=== PATIENT | female | born 1965 | race Caucasian/White ===

== ENCOUNTER 2016-10-29 11:05 | Day surgery (SDC) | payer OTHER ==
[~2016-10-29] VITALS: Ht 167.6 cm; Wt 111.1 kg
[~2016-10-29 11:05] MED LIST: ADVAIR HFA120 INHALA IH; AMOX TR-K CLV1 EAC3 PO; APRESOLINE25 MG PO; ASPIR 8181 MG PO; ASPIRIN EC325 MG PO; ASPIRIN81 M2 PO; AVENTYL,PAMELOR25 MG PO; Aspirin E.C. PO; BACTRIM,SEPT1 TABLET PO; BENADRYL25 MG PO; BUSPAR10 MG PO; BUSPAR5 MG PO; Buspar PO; CALCIUM ACETAT667 M2 PO; CALCIUM ACETAT667 MG PO; CARVEDILOL12.5 MG PO; CARVEDILOL3.125 MG PO; CARVEDILOL6.25 MG PO; CEPHALEXIN500 MG PO; CLARITIN10 M3 PO; CLEOCIN300 MG PO; CLINDAMYCIN HC300 MG PO; CLOPIDOGREL75 MG PO; COREG3.125 M1 PO; COREG6.25 M1 PO; CRESTOR20 MG PO; Cipro PO; Cleocin PO; Colace PO; DOXYCYCLINE HY100 MG PO; ENALAPRIL MALEA20 M1 PO; ENALAPRIL MALEA20 MG PO; ENDOCET 5-3251 EACH PO; ERGOCALCIF50000 UNIT PO; FENOFIBRATE145 M1 PO; FENOFIBRATE160 MG PO; FENOGLIDE40 MG PO; FLONASE ALLERG9.9 ML BOTH NARES; FLORASTOR250 MG PO; FUROSEMIDE40 MG PO; GABAPENTIN300 MG PO; GABAPENTIN400 MG PO; GABAPENTIN800 MG PO; GLIPIZIDE5 MG PO; GLUCOTROL5 MG PO; GLYBURIDE5 MG PO; HUMALOG100 UNIT/1 SC; HUMALOG100 UNIT/2 SC; HYDRALAZINE HCL25 MG PO; HYDROCHLOROTH12.5 M2 PO; HYDROCODON-ACE1 EAC7 PO; Habitrol,Nicoderm CQ TD; JANUVIA25 MG PO; Januvia PO; K-DUR10 MEQ PO; KEFLEX500 MG PO; LANTUS 10100 UNITS/ SC; LANTUS 10100 UNITS/ SQ; LASIX40 MG PO; LEVEMIR FL100 UNIT/1 SC; LEVEMIR FL100 UNITS/ SC; LITE COAT ASPI325 M1 PO; Mitrazol 2% Cream TP; NEPHRO-VITE,1 TABLET PO; NEURONTIN400 MG PO; NEURONTIN800 MG PO; NICOTINE PATCH1 EAC1 TD; NICOTINE PATCH1 EAC2 TD; NITROSTAT0.4 MG SL; NORTRIPTYLINE H10 MG PO; NORTRIPTYLINE H25 MG PO; NOVOLOG PE100 UNITS/ SC; NOVOLOG100 UNIT/3 SQ; Neurontin PO; OXYCODONE10 MG PO; Oscal 500 w/Vitamin PO; PAMELOR25 MG PO; PANTOPRAZOLE SO40 MG PO; PERCOCET 10/1 TABLET PO; PERCOCET 5/31 TABLET PO; PHENERGAN W/COD10 ML PO; PLAVIX75 MG PO; PRAVACHOL40 MG PO; PRAVASTATIN SOD40 MG PO; PROVENTIL HFA6.7 GM IH; Proventil,Ventolin H IH; SERTRALINE HCL100 MG PO; SPIRIVA RESPIMAT4 GM IH; SPIRIVA1 INHALATI IH; Senokot S,Pericolace PO; TYLENOL REGULA325 MG PO; Theragran PO; Tricor PO; ULTRAM50 MG PO; VANCOMYCIN HCL1 GM IV; VANCOMYCIN HCL500 MG IV; VICTOZA 2-0.6 MG/0.1 SQ; VITAMIN D250000 UNIT PO; ZOFRAN ODT4 MG PO; ZOFRAN4 MG PO; ZOLOFT100 MG PO; Zoloft PO; oxyCODONE PO
[2016-10-29] MEDS ORDERED: HYDRALAZINE HCL25 MG PO (11:40)
[2016-10-29 12:05] LABS: POINT-OF-CARE METER ID UU13113696
[2016-10-29 13:09] LABS: METH RESISTANT S AUREUS PCR NEGATIVE (NEGATIVE); PROBE CHECK PASS; SPECIMEN PROCESSING CONTROL PASS
== END 2016-10-29 15:35 | disposition home or self-care (01) ==
LOC: CATH 11:05 → SDC 11:06 → CATH 14:01
PROVIDERS: Surgery
PROC: 02HV33Z Insertion of Infusion Device into Superior Vena Cava, Percutaneous Approach (ICD-10-PCS; principal; 2016-10-29)
DX: T82.9XXA Unspecified complication of cardiac and vascular prosthetic device, implant and graft, initial encounter (principal); Y83.8 Other surgical procedures as the cause of abnormal reaction of the patient, or of later complication, without mention of misadventure at the time of the procedure; Z99.2 Dependence on renal dialysis; I12.0 Hypertensive chronic kidney disease with stage 5 chronic kidney disease or end stage renal disease; E11.22 Type 2 diabetes mellitus with diabetic chronic kidney disease; N18.6 End stage renal disease; R01.1 Cardiac murmur, unspecified; J44.9 Chronic obstructive pulmonary disease, unspecified; F17.200 Nicotine dependence, unspecified, uncomplicated
CPT/HCPCS: 82948; 87641; C1750; J0690; J1644; J2250; J2405; J3010; S0020

== ENCOUNTER 2016-12-03 11:56 | Day surgery (SDC) | payer OTHER ==
[~2016-12-03] VITALS: Ht 167.6 cm; Wt 113.3 kg
[2016-12-03 12:39] VITALS: BP 155/82
[2016-12-03 13:04] LABS: HEMATOCRIT 39.1 % (36.0-46.0); MCH 30.8 PG (29.0-34.0); MCHC 32.2 G/DL (30.0-36.0); MCV 95.6 FL (83-99); RBC DIS.WIDTH-SD 56.6 % (39-53); RED BLOOD COUNT 4.09 M/uL (3.80-5.20); WHITE BLOOD COUNT 4.2 K/uL (4.1-10.2)
[2016-12-03 13:27] LABS: MEAN PLAT.VOLUME 11.2 uM^3 (9.5-12.4); PLATELET COUNT 104 K/uL (156-360)
[2016-12-03 13:30] LABS: METH RESISTANT S AUREUS PCR POSITIVE (NEGATIVE)
[2016-12-03 13:32] LABS: PROBE CHECK PASS
[2016-12-03 13:42] LABS: ANION GAP 12 MEQ/L (2-14); CHLORIDE 99 MEQ/L (99-109); GFR ESTIMATE (CALCULATED) 20 mL/min/; GLUCOSE 125 mg/dL (70-99); POTASSIUM 4.5 MEQ/L (3.7-5.4); SAMPLE HEMOLYSIS CHECK 0; SAMPLE ICTERIC CHECK 0; SAMPLE LIPEMIA CHECK 0; SODIUM 134 MEQ/L (136-147); UREA NITROGEN (BUN) 13 mg/dL (9-23)
[2016-12-03 16:47] LABS: POINT-OF-CARE USER ID 515036437
[2016-12-03 17:30] VITALS: BP 135/62
[2016-12-03 18:12] VITALS: BP 124/57
== END 2016-12-03 18:12 | disposition home or self-care (01) ==
LOC: SDC 11:56
PROVIDERS: Surgery
PROC: 03170KD Bypass Right Brachial Artery to Upper Arm Vein with Nonautologous Tissue Substitute, Open Approach (ICD-10-PCS; principal; 2016-12-03)
DX: N18.6 End stage renal disease (principal); I12.0 Hypertensive chronic kidney disease with stage 5 chronic kidney disease or end stage renal disease; E11.22 Type 2 diabetes mellitus with diabetic chronic kidney disease; Z86.73 Personal history of transient ischemic attack (TIA), and cerebral infarction without residual deficits; J45.909 Unspecified asthma, uncomplicated; J44.9 Chronic obstructive pulmonary disease, unspecified; I73.9 Peripheral vascular disease, unspecified; M19.90 Unspecified osteoarthritis, unspecified site
CPT/HCPCS: 80048; 82948; 85027; 87641; C1768; J0690; J1644; J2250; J2720; J3010

== ENCOUNTER 2016-12-30 07:15 | Day surgery (SDC) | payer OTHER ==
[~2016-12-30] VITALS: Ht 167.6 cm; Wt 113.0 kg
[2016-12-30] MEDS ORDERED: ASPIRIN325 MG PO (08:03)
[2016-12-30 08:39] LABS: POINT-OF-CARE METER ID UU13113696
[2016-12-30 09:49] LABS: METH RESISTANT S AUREUS PCR NEGATIVE (NEGATIVE)
[2016-12-30 09:58] LABS: PROBE CHECK PASS; SPECIMEN PROCESSING CONTROL PASS
[2016-12-31] MEDS ORDERED: PERCOCET 10/1 TABLET PO (08:57)
== END 2016-12-30 11:07 | disposition home or self-care (01) ==
LOC: CATH 07:15
PROVIDERS: Surgery
PROC: 05HY33Z Insertion of Infusion Device into Upper Vein, Percutaneous Approach (ICD-10-PCS; principal; 2016-12-30)
PROC: B51W1ZZ Fluoroscopy of Dialysis Shunt/Fistula using Low Osmolar Contrast (ICD-10-PCS; principal; 2016-12-30)
DX: T82.858A Stenosis of other vascular prosthetic devices, implants and grafts, initial encounter (principal); Y83.2 Surgical operation with anastomosis, bypass or graft as the cause of abnormal reaction of the patient, or of later complication, without mention of misadventure at the time of the procedure; I12.0 Hypertensive chronic kidney disease with stage 5 chronic kidney disease or end stage renal disease; E11.22 Type 2 diabetes mellitus with diabetic chronic kidney disease; N18.6 End stage renal disease; Z99.2 Dependence on renal dialysis; F17.200 Nicotine dependence, unspecified, uncomplicated; I73.9 Peripheral vascular disease, unspecified; Z86.73 Personal history of transient ischemic attack (TIA), and cerebral infarction without residual deficits; J44.9 Chronic obstructive pulmonary disease, unspecified; J45.909 Unspecified asthma, uncomplicated; M19.90 Unspecified osteoarthritis, unspecified site; Z79.4 Long term (current) use of insulin; Z79.891 Long term (current) use of opiate analgesic
CPT/HCPCS: 82948; 87641; C1725; C1769; C1894; J1644; J2250; J3010

== ENCOUNTER 2017-01-02 08:23 | Day surgery (SDC) | payer OTHER ==
[~2017-01-02] VITALS: Ht 167.6 cm; Wt 113.4 kg
[2017-01-02] VITALS (7 sets, daily range): BP systolic 93–133; BP diastolic 52–87
[~2017-01-02 08:23] MED LIST changes: +ASPIRIN325 MG PO
[2017-01-02 09:31] LABS: HEMATOCRIT 34.1 % (36.0-46.0); MCH 30.3 PG (29.0-34.0); MCHC 31.4 G/DL (30.0-36.0); MCV 96.6 FL (83-99); MEAN PLAT.VOLUME 10.2 uM^3 (9.5-12.4); PLATELET COUNT 113 K/uL (156-360); RBC DIS.WIDTH-CV 17.1 % (11.8-14.6); RBC DIS.WIDTH-SD 59.8 % (39-53); RED BLOOD COUNT 3.53 M/uL (3.80-5.20); WHITE BLOOD COUNT 4.2 K/uL (4.1-10.2)
[2017-01-02 09:55] LABS: ANION GAP 12 MEQ/L (2-14); CHLORIDE 89 MEQ/L (99-109); POTASSIUM 3.5 MEQ/L (3.7-5.4); SAMPLE HEMOLYSIS CHECK 0; SAMPLE ICTERIC CHECK 0; SAMPLE LIPEMIA CHECK 0; SODIUM 134 MEQ/L (136-147)
[2017-01-02 10:01] LABS: GFR ESTIMATE (CALCULATED) 9 mL/min/; GLUCOSE 265 mg/dL (70-99); UREA NITROGEN (BUN) 29 mg/dL (9-23)
[2017-01-02 10:34] LABS: METH RESISTANT S AUREUS PCR NEGATIVE (NEGATIVE)
[2017-01-02 10:46] LABS: PROBE CHECK PASS; SPECIMEN PROCESSING CONTROL PASS
[2017-01-02 11:37] LABS: POINT-OF-CARE METER ID UU14174212
[2017-01-02 14:10] LABS: POINT-OF-CARE METER ID UU13113675
[2017-01-02 15:18] LABS: TROP-I INTERPRETATION NEGATIVE; TROPONIN-I 0.06 ng/mL (0.0-0.30)
[2017-01-02 15:23] LABS: HEMATOCRIT 25.8 % (36.0-46.0); MCH 30.5 PG (29.0-34.0); MCHC 31.8 G/DL (30.0-36.0); MCV 95.9 FL (83-99); MEAN PLAT.VOLUME 10.9 uM^3 (9.5-12.4); PLATELET COUNT 87 K/uL (156-360); RBC DIS.WIDTH-CV 17.3 % (11.8-14.6); RBC DIS.WIDTH-SD 59.9 % (39-53); WHITE BLOOD COUNT 3.6 K/uL (4.1-10.2)
[2017-01-02 16:00] LABS: RED BLOOD COUNT 2.69 M/uL (3.80-5.20)
== END 2017-01-02 21:27 | disposition home or self-care (01) ==
LOC: SDC 08:23
PROVIDERS: Anesthesiology; Surgery
PROC: 30233N1 Transfusion of Nonautologous Red Blood Cells into Peripheral Vein, Percutaneous Approach (ICD-10-PCS; principal; 2017-01-02)
PROC: 05WY07Z Revision of Autologous Tissue Substitute in Upper Vein, Open Approach (ICD-10-PCS; principal; 2017-01-02)
PROC: 05HM33Z Insertion of Infusion Device into Right Internal Jugular Vein, Percutaneous Approach (ICD-10-PCS; principal; 2017-01-02)
DX: T82.858A Stenosis of other vascular prosthetic devices, implants and grafts, initial encounter (principal); I12.0 Hypertensive chronic kidney disease with stage 5 chronic kidney disease or end stage renal disease; E11.22 Type 2 diabetes mellitus with diabetic chronic kidney disease; E11.42 Type 2 diabetes mellitus with diabetic polyneuropathy; N18.6 End stage renal disease; Z99.2 Dependence on renal dialysis; I25.10 Atherosclerotic heart disease of native coronary artery without angina pectoris; I25.2 Old myocardial infarction; Z98.61 Coronary angioplasty status; D64.9 Anemia, unspecified; E78.5 Hyperlipidemia, unspecified; E66.9 Obesity, unspecified; Z68.39 Body mass index [BMI] 39.0-39.9, adult; J44.9 Chronic obstructive pulmonary disease, unspecified; E78.00 Pure hypercholesterolemia, unspecified; F17.200 Nicotine dependence, unspecified, uncomplicated; Z82.49 Family history of ischemic heart disease and other diseases of the circulatory system; Z82.3 Family history of stroke; Z83.3 Family history of diabetes mellitus; Z79.82 Long term (current) use of aspirin; Z79.02 Long term (current) use of antithrombotics/antiplatelets
CPT/HCPCS: 71020; 80048; 82948; 84484; 85014; 85018; 85027; 86850; 86900; 86901; 86920; 87070; 87075; 87205; 87641; 93005; C1750; C1769; C2628; J0131; J0690; J1170; J1644; J2250; J2720; J3010; P9016; P9045

== ENCOUNTER 2017-02-02 17:53 | Emergency (ER) | payer OTHER ==
[~2017-02-02] VITALS: Ht 167.6 cm; Wt 111.4 kg
[2017-02-02] MEDS ORDERED: KEFLEX500 MG PO (19:31)
[2017-02-02 19:58] VITALS: BP 145/79
== END 2017-02-02 19:59 | disposition home or self-care (01) ==
LOC: EME 17:53
PROC: 0HQNXZZ Repair Left Foot Skin, External Approach (ICD-10-PCS; principal; 2017-02-02)
DX: S91.312A Laceration without foreign body, left foot, initial encounter (principal); W22.03XA Walked into furniture, initial encounter; J45.909 Unspecified asthma, uncomplicated; E11.9 Type 2 diabetes mellitus without complications; Z79.4 Long term (current) use of insulin; Z79.84 Long term (current) use of oral hypoglycemic drugs; E78.5 Hyperlipidemia, unspecified; I25.2 Old myocardial infarction; Z86.73 Personal history of transient ischemic attack (TIA), and cerebral infarction without residual deficits; Z87.442 Personal history of urinary calculi; Z95.5 Presence of coronary angioplasty implant and graft; Z79.01 Long term (current) use of anticoagulants; F17.200 Nicotine dependence, unspecified, uncomplicated; I50.9 Heart failure, unspecified
CPT/HCPCS: 99281; 99284

== ENCOUNTER 2017-02-27 11:26 | Inpatient (IN) | payer OTHER ==
[~2017-02-27] VITALS: Ht 165.1 cm; Wt 113.9 kg
[2017-02-27 12:26] LABS: HEMATOCRIT 32.9 % (36.0-46.0); MCH 31.8 PG (29.0-34.0); MCHC 31.3 G/DL (30.0-36.0); MCV 101.5 FL (83-99); MEAN PLAT.VOLUME 10.6 uM^3 (9.5-12.4); PLATELET COUNT 110 K/uL (156-360); RBC DIS.WIDTH-CV 17.4 % (11.8-14.6); RBC DIS.WIDTH-SD 65.1 % (39-53); RED BLOOD COUNT 3.24 M/uL (3.80-5.20); WHITE BLOOD COUNT 9.2 K/uL (4.1-10.2)
[2017-02-27 12:35] LABS: CHLORIDE 89 mEq/L (99-109); POTASSIUM 4.1 mEq/L (3.7-5.4); SODIUM 133 mEq/L (136-147)
[2017-02-27 12:38] LABS: ANION GAP 16 MEQ/L (2-14); GLUCOSE 584 mg/dL (70-99)
[2017-02-27 12:40] LABS: ADD MIUA? YES; BILIRUBIN NEGATIVE; BLOOD LARGE; COLOR AMBER ((YELLOW)); GLUCOSE (STRIP) >=500; KETONES NEGATIVE; LEUKOCYTES MODERATE; NITRITE NEGATIVE; PROTEIN (STRIP) >=500; SPECIFIC GRAVITY 1.017 (1.000-1.030); UROBILINOGEN 0.2 MG/DL (0.2-1.0)
[2017-02-27 12:41] LABS: GFR ESTIMATE (CALCULATED) 7 mL/min/; UREA NITROGEN (BUN) 38 mg/dL (9-23)
[2017-02-27 12:51] LABS: TROP-I INTERPRETATION POSITIVE
[2017-02-27 13:13] LABS: BACTERIA 2+ /HPF; BUDDING YEAST 2+; EPITHELIAL CELLS 1+ /HPF; MUCUS TRACE /LPF; RED BLOOD CELLS 40-50 /HPF (0-5); UCUL ADDED? YES; WHITE BLOOD CELLS TNTC /HPF (0-5); WHITE BLOOD CELLS CLUMP MANY /HPF (0-5)
[2017-02-27 13:56] LABS: CREATINE KINASE 1027 IU/L (1-294)
[2017-02-27] MEDS ORDERED: HYDROCODON-ACE1 EAC7 PO (14:30)
[2017-02-27] MEDS ORDERED: SPIRIVA1 INHALATI IH (14:31)
[2017-02-27] MEDS ORDERED: HUMALOG100 UNIT/2 SC (14:34)
[2017-02-27] MEDS ORDERED: NITROSTAT0.4 MG SL (14:39)
[2017-02-27] MEDS ORDERED: NEPHRO-VITE,1 TABLET PO (14:40)
[2017-02-27 16:00] VITALS: BP 163/72
[2017-02-27 16:33] LABS: POINT-OF-CARE METER ID UU13113781
[2017-02-27 19:51] LABS: TROP-I INTERPRETATION POSITIVE
[2017-02-27 22:12] LABS: HEMATOCRIT 34.1 % (36.0-46.0); MCV 99.7 FL (83-99)
[2017-02-27 22:50] VITALS: BP 126/58
[2017-02-28 01:13] LABS: TROP-I INTERPRETATION POSITIVE; TROPONIN-I 0.84 ng/mL (0.0-0.30)
[2017-02-28 04:45] VITALS: BP 119/56
[2017-02-28 05:59] LABS: INTER. NORMALIZED RATIO 1.3; PROTHROMBIN TIME 13.4 (9.2-11.2); PTT 36.4 (25-32)
[2017-02-28 06:11] LABS: MCH 31.3 PG (29.0-34.0); MCHC 30.3 G/DL (30.0-36.0); MCV 103.1 FL (83-99); RBC DIS.WIDTH-CV 17.4 % (11.8-14.6); RBC DIS.WIDTH-SD 66.4 % (39-53); RED BLOOD COUNT 2.91 M/uL (3.80-5.20); WHITE BLOOD COUNT 6.7 K/uL (4.1-10.2)
[2017-02-28 06:13] LABS: ALKALINE PHOSPHATASE 57 IU/L (3-129); ANION GAP 11 MEQ/L (2-14); CHLORIDE 95 MEQ/L (99-109); CREATINE KINASE 554 IU/L (1-294); DIRECT BILIRUBIN 0.3 mg/dL (0.0-0.3); GFR ESTIMATE (CALCULATED) 14 mL/min/; POTASSIUM 3.8 MEQ/L (3.7-5.4); SAMPLE HEMOLYSIS CHECK 0; SAMPLE ICTERIC CHECK 0; SAMPLE LIPEMIA CHECK 0; SODIUM 138 MEQ/L (136-147); TOTAL BILIRUBIN 0.9 MG/DL (0.0-1.0); TOTAL CK 554 IU/L (1-294); UREA NITROGEN (BUN) 20 mg/dL (9-23)
[2017-02-28 06:14] LABS: GLUCOSE 243 mg/dL (70-99)
[2017-02-28 06:43] LABS: CK-MB 1.8 ng/mL (0.0-4.9)
[2017-02-28 07:00] VITALS: BP 118/56
[2017-02-28 08:27] LABS: MEAN PLAT.VOLUME 11.1 uM^3 (9.5-12.4); PLAT.SUFFICIENCY DECREASED; PLATELET COUNT 77 K/uL (156-360)
[2017-02-28 11:19] VITALS: BP 116/56
[2017-02-28 16:24] VITALS: BP 106/55
[2017-02-28 16:44] LABS: HEMATOCRIT 29.5 % (36.0-46.0); MCV 102.4 FL (83-99)
[2017-02-28 20:00] VITALS: BP 110/56
[2017-02-28 23:36] VITALS: BP 115/58
[2017-03-01] VITALS (7 sets, daily range): BP systolic 87–130; BP diastolic 48–58
[2017-03-01 06:31] LABS: ANION GAP 10 MEQ/L (2-14); CHLORIDE 96 MEQ/L (99-109); GLUCOSE 156 mg/dL (70-99); POTASSIUM 4.1 MEQ/L (3.7-5.4); SAMPLE HEMOLYSIS CHECK 0; SAMPLE ICTERIC CHECK 0; SAMPLE LIPEMIA CHECK 0; SODIUM 139 MEQ/L (136-147)
[2017-03-01 06:33] LABS: GFR ESTIMATE (CALCULATED) 8 mL/min/; UREA NITROGEN (BUN) 40 mg/dL (9-23); VANCOMYCIN, TROUGH 16.9 MCG/ML (10-20)
[2017-03-01 07:12] LABS: HEMATOCRIT 29.5 % (36.0-46.0); MCH 31.7 PG (29.0-34.0); MCHC 30.2 G/DL (30.0-36.0); RBC DIS.WIDTH-CV 17.4 % (11.8-14.6); RBC DIS.WIDTH-SD 67.7 % (39-53); RED BLOOD COUNT 2.81 M/uL (3.80-5.20)
[2017-03-01 07:13] LABS: MEAN PLAT.VOLUME 11.2 uM^3 (9.5-12.4); PLATELET COUNT 77 K/uL (156-360); WHITE BLOOD COUNT 4.5 K/uL (4.1-10.2)
[2017-03-01 08:03] LABS: ABS NEUTROPHIL COUNT 3.9; ANISOCYTOSIS 1+; ATYPICAL LYMPHOCYTE 0.9 %; BAND NEUTROPHILS 11.3 % (0-8.0); EOSINOPHIL ABS CT 0; EOSINOPHILS 0.8 % (0-5.0); INSTRUMENT ABS NEUTROPHIL CT 3.3 K/uL; LYMPHOCYTES 11.3 % (15.0-45.0); MACROCYTES 1+; PLAT.SUFFICIENCY DECREASED; POLYCHROMASIA 1+; SEG.NEUTROPHILS 74.8 % (46.0-76.0)
[2017-03-01 08:13] LABS: POINT-OF-CARE METER ID UU14174216
[2017-03-01 11:57] LABS: POINT-OF-CARE METER ID UU13113781
[2017-03-01 21:07] LABS: HEMATOCRIT 25.4 % (36.0-46.0); MCV 103.3 FL (83-99)
[2017-03-02 04:11] VITALS: BP 106/52
[2017-03-02 06:45] VITALS: BP 114/57
[2017-03-02 09:16] LABS: EOSINOPHIL (%) 5.5 % (0-5); EOSINOPHIL COUNT 0.2 K/uL (0-0.3); HEMATOCRIT 25.3 % (36.0-46.0); IMMATURE GRANULOCYTE (%) 0.2 % (0.0-0.7); INSTRUMENT ABS NEUTROPHIL CT 3.2 K/uL; LYMPHOCYTE COUNT 0.6 K/uL (1.0-2.8); MCH 31.6 PG (29.0-34.0); MCHC 30.8 G/DL (30.0-36.0); MCV 102.4 FL (83-99); MONOCYTE (%) 7.3 % (3-12); MONOCYTE COUNT 0.3 K/uL (0-0.8); NEUTROPHIL (%) 72.5 % (45-76); NEUTROPHIL COUNT 3.2 K/uL (1.8-6.4); PLATELET COUNT 64 K/uL (156-360); RBC DIS.WIDTH-CV 17.2 % (11.8-14.6); RBC DIS.WIDTH-SD 64.5 % (39-53); RED BLOOD COUNT 2.47 M/uL (3.80-5.20); WHITE BLOOD COUNT 4.4 K/uL (4.1-10.2)
[2017-03-02 09:59] LABS: ANION GAP 10 MEQ/L (2-14); CHLORIDE 92 MEQ/L (99-109); GFR ESTIMATE (CALCULATED) 6 mL/min/; GLUCOSE 337 mg/dL (70-99); SAMPLE HEMOLYSIS CHECK 0; SAMPLE ICTERIC CHECK 0; SAMPLE LIPEMIA CHECK 0; SODIUM 131 MEQ/L (136-147); UREA NITROGEN (BUN) 60 mg/dL (9-23)
[2017-03-02 10:59] LABS: POINT-OF-CARE METER ID UU13113702; POINT-OF-CARE USER ID NUTJLF39
[2017-03-02 10:59] LABS: POINT-OF-CARE METER ID UU13113702; POINT-OF-CARE USER ID AHSDISBJH
[2017-03-02 13:07] LABS: POC NON-PRINT COM 1 ND
[2017-03-02 13:07] LABS: POC NON-PRINT COM 1 ND
[2017-03-02 13:45] VITALS: BP 135/83
[2017-03-02 16:23] LABS: POINT-OF-CARE METER ID UU14174216
[2017-03-02 17:04] VITALS: BP 130/60
[2017-03-02 20:01] VITALS: BP 120/58
[2017-03-03 00:11] VITALS: BP 94/52
[2017-03-03 03:45] VITALS: BP 98/50
[2017-03-03 07:34] LABS: EOSINOPHIL (%) 6.2 % (0-5); EOSINOPHIL COUNT 0.2 K/uL (0-0.3); HEMATOCRIT 24.7 % (36.0-46.0); IMMATURE GRANULOCYTE (%) 0.3 % (0.0-0.7); INSTRUMENT ABS NEUTROPHIL CT 2.2 K/uL; MCH 31.5 PG (29.0-34.0); MCHC 30.4 G/DL (30.0-36.0); MCV 103.8 FL (83-99); MONOCYTE (%) 10.1 % (3-12); MONOCYTE COUNT 0.4 K/uL (0-0.8); NEUTROPHIL (%) 56.9 % (45-76); NEUTROPHIL COUNT 2.2 K/uL (1.8-6.4); RBC DIS.WIDTH-CV 17.1 % (11.8-14.6); RBC DIS.WIDTH-SD 64.5 % (39-53); RED BLOOD COUNT 2.38 M/uL (3.80-5.20); WHITE BLOOD COUNT 3.9 K/uL (4.1-10.2)
[2017-03-03 08:00] LABS: ANION GAP 9 MEQ/L (2-14); CHLORIDE 94 MEQ/L (99-109); GFR ESTIMATE (CALCULATED) 10 mL/min/; GLUCOSE 184 mg/dL (70-99); POTASSIUM 4.1 MEQ/L (3.7-5.4); SAMPLE HEMOLYSIS CHECK 1; SAMPLE ICTERIC CHECK 0; SAMPLE LIPEMIA CHECK 0; SODIUM 137 MEQ/L (136-147); UREA NITROGEN (BUN) 28 mg/dL (9-23)
[2017-03-03 08:30] VITALS: BP 112/58
[2017-03-03 08:52] LABS: PLAT.SUFFICIENCY DECREASED; PLATELET COUNT 70 K/uL (156-360)
[2017-03-03 12:00] VITALS: BP 110/53
[2017-03-03 20:42] VITALS: BP 120/59
[2017-03-04 00:37] VITALS: BP 120/56
[2017-03-04 04:00] VITALS: BP 133/63
[2017-03-04 08:42] LABS: HEMATOCRIT 24.5 % (36.0-46.0); MCH 31.1 PG (29.0-34.0); MCV 100.4 FL (83-99); MEAN PLAT.VOLUME 11.8 uM^3 (9.5-12.4); PLATELET COUNT 85 K/uL (156-360); RBC DIS.WIDTH-CV 16.6 % (11.8-14.6); RBC DIS.WIDTH-SD 61.3 % (39-53); RED BLOOD COUNT 2.44 M/uL (3.80-5.20); WHITE BLOOD COUNT 4.4 K/uL (4.1-10.2)
[2017-03-04 09:06] LABS: ANION GAP 10 MEQ/L (2-14); CHLORIDE 91 MEQ/L (99-109); GFR ESTIMATE (CALCULATED) 8 mL/min/; GLUCOSE 193 mg/dL (70-99); SAMPLE HEMOLYSIS CHECK 0; SAMPLE ICTERIC CHECK 0; SAMPLE LIPEMIA CHECK 0; SODIUM 131 MEQ/L (136-147)
[2017-03-04 09:08] LABS: UREA NITROGEN (BUN) 43 mg/dL (9-23)
[2017-03-04 14:30] VITALS: BP 178/83
[2017-03-04 16:51] LABS: POINT-OF-CARE METER ID UU14174216
[2017-03-04 20:20] VITALS: BP 192/81
[2017-03-04 23:05] VITALS: BP 177/84
[2017-03-05 07:27] VITALS: BP 196/91
[2017-03-05 07:59] LABS: POINT-OF-CARE METER ID UU14188625
[2017-03-05 11:19] LABS: POINT-OF-CARE METER ID UU14188625
[2017-03-05 14:38] LABS: HEMATOCRIT 25.8 % (36.0-46.0); MCH 32.3 PG (29.0-34.0); MCHC 32.2 G/DL (30.0-36.0); MCV 100.4 FL (83-99); MEAN PLAT.VOLUME 11.2 uM^3 (9.5-12.4); PLATELET COUNT 106 K/uL (156-360); RBC DIS.WIDTH-CV 16.6 % (11.8-14.6); RBC DIS.WIDTH-SD 60.8 % (39-53); RED BLOOD COUNT 2.57 M/uL (3.80-5.20); WHITE BLOOD COUNT 3.7 K/uL (4.1-10.2)
[2017-03-05 15:30] VITALS: BP 178/79
[2017-03-05 16:35] LABS: GLUCOSE 184 mg/dL (70-99); UREA NITROGEN (BUN) 28 mg/dL (9-23)
[2017-03-05 16:36] LABS: CHLORIDE 93 MEQ/L (99-109); GFR ESTIMATE (CALCULATED) 11 mL/min/; IRON 29 MCG/DL (35-150); POTASSIUM 4.1 MEQ/L (3.7-5.4); SODIUM 134 MEQ/L (136-147)
[2017-03-05 17:08] LABS: POINT-OF-CARE METER ID UU14188625
[2017-03-05 18:50] LABS: FERRITIN 745 NG/ML (10-291)
[2017-03-05 23:57] VITALS: BP 145/78
[2017-03-06 08:43] LABS: EOSINOPHIL (%) 3.6 % (0-5); EOSINOPHIL COUNT 0.1 K/uL (0-0.3); HEMATOCRIT 24.2 % (36.0-46.0); IMMATURE GRANULOCYTE (%) 0.6 % (0.0-0.7); INSTRUMENT ABS NEUTROPHIL CT 2.2 K/uL; LYMPHOCYTE COUNT 0.8 K/uL (1.0-2.8); MCH 32.4 PG (29.0-34.0); MCHC 32.2 G/DL (30.0-36.0); MCV 100.4 FL (83-99); MEAN PLAT.VOLUME 11.1 uM^3 (9.5-12.4); MONOCYTE (%) 8.3 % (3-12); MONOCYTE COUNT 0.3 K/uL (0-0.8); NEUTROPHIL COUNT 2.2 K/uL (1.8-6.4); PLATELET COUNT 126 K/uL (156-360); RBC DIS.WIDTH-CV 16.8 % (11.8-14.6); RBC DIS.WIDTH-SD 62.5 % (39-53); RED BLOOD COUNT 2.41 M/uL (3.80-5.20); WHITE BLOOD COUNT 3.4 K/uL (4.1-10.2)
[2017-03-06 09:20] LABS: ANION GAP 14 MEQ/L (2-14); CHLORIDE 93 MEQ/L (99-109); POTASSIUM 3.7 MEQ/L (3.7-5.4); SAMPLE HEMOLYSIS CHECK 0; SAMPLE ICTERIC CHECK 0; SAMPLE LIPEMIA CHECK 0; SODIUM 134 MEQ/L (136-147)
[2017-03-06 09:25] LABS: GFR ESTIMATE (CALCULATED) 9 mL/min/; GLUCOSE 175 mg/dL (70-99); UREA NITROGEN (BUN) 36 mg/dL (9-23)
[2017-03-06 15:28] VITALS: BP 132/67
[2017-03-06 17:21] LABS: POINT-OF-CARE METER ID UU14174225
[2017-03-06 21:42] LABS: POINT-OF-CARE METER ID UU14174225
[2017-03-07] VITALS: BP 135/64
[2017-03-07 07:24] VITALS: BP 153/67
[2017-03-07 07:50] LABS: POINT-OF-CARE METER ID UU14188625
[2017-03-07 09:58] LABS: HEMATOCRIT 28.8 % (36.0-46.0); MCH 31.8 PG (29.0-34.0); MCHC 30.9 G/DL (30.0-36.0); MCV 102.9 FL (83-99); MEAN PLAT.VOLUME 10.7 uM^3 (9.5-12.4); PLATELET COUNT 158 K/uL (156-360); RBC DIS.WIDTH-CV 16.8 % (11.8-14.6); RBC DIS.WIDTH-SD 63.3 % (39-53); WHITE BLOOD COUNT 4.1 K/uL (4.1-10.2)
[2017-03-07 10:21] LABS: ANION GAP 12 MEQ/L (2-14); CHLORIDE 94 MEQ/L (99-109); GFR ESTIMATE (CALCULATED) 14 mL/min/; GLUCOSE 122 mg/dL (70-99); POTASSIUM 3.9 MEQ/L (3.7-5.4); SAMPLE HEMOLYSIS CHECK 0; SAMPLE ICTERIC CHECK 0; SAMPLE LIPEMIA CHECK 0; SODIUM 137 MEQ/L (136-147); UREA NITROGEN (BUN) 20 mg/dL (9-23)
[2017-03-07 11:17] LABS: POINT-OF-CARE METER ID UU14174225
[2017-03-07 15:09] VITALS: BP 145/70
[2017-03-08] VITALS: BP 120/58
[2017-03-08 06:17] LABS: POINT-OF-CARE USER ID 603211116
[2017-03-08 07:41] VITALS: BP 138/65
[2017-03-08 07:41] LABS: POINT-OF-CARE METER ID UU14188625
[2017-03-08 11:15] LABS: POINT-OF-CARE METER ID UU13113675
[2017-03-08 14:33] VITALS: BP 107/53
[2017-03-08 16:05] LABS: POINT-OF-CARE METER ID UU14188625
[2017-03-08 21:05] LABS: POINT-OF-CARE METER ID UU14174225
[2017-03-09 06:19] LABS: HEMATOCRIT 24.4 % (36.0-46.0); MCH 31.3 PG (29.0-34.0); MCHC 30.7 G/DL (30.0-36.0); MCV 101.7 FL (83-99); MEAN PLAT.VOLUME 10.7 uM^3 (9.5-12.4); PLATELET COUNT 155 K/uL (156-360); RBC DIS.WIDTH-CV 16.5 % (11.8-14.6); WHITE BLOOD COUNT 4.7 K/uL (4.1-10.2)
[2017-03-09 06:40] LABS: ANION GAP 13 MEQ/L (2-14); CHLORIDE 92 MEQ/L (99-109); GFR ESTIMATE (CALCULATED) 7 mL/min/; POTASSIUM 4.5 MEQ/L (3.7-5.4); SAMPLE HEMOLYSIS CHECK 0; SAMPLE ICTERIC CHECK 0; SAMPLE LIPEMIA CHECK 0; SODIUM 132 MEQ/L (136-147)
[2017-03-09 06:47] LABS: GLUCOSE 318 mg/dL (70-99); UREA NITROGEN (BUN) 49 mg/dL (9-23)
[2017-03-09 07:34] VITALS: BP 109/58
[2017-03-09 09:12] LABS: EOSINOPHIL COUNT 0.1 K/uL (0-0.3); HEMATOCRIT 24.1 % (36.0-46.0); IMMATURE GRANULOCYTE (%) 0.6 % (0.0-0.7); INSTRUMENT ABS NEUTROPHIL CT 3.5 K/uL; LYMPHOCYTE COUNT 1.2 K/uL (1.0-2.8); MCH 31.2 PG (29.0-34.0); MCHC 30.7 G/DL (30.0-36.0); MCV 101.7 FL (83-99); MEAN PLAT.VOLUME 10.7 uM^3 (9.5-12.4); MONOCYTE (%) 6.1 % (3-12); MONOCYTE COUNT 0.3 K/uL (0-0.8); NEUTROPHIL (%) 67.8 % (45-76); NEUTROPHIL COUNT 3.5 K/uL (1.8-6.4); PLATELET COUNT 150 K/uL (156-360); RBC DIS.WIDTH-CV 16.9 % (11.8-14.6); RBC DIS.WIDTH-SD 61.9 % (39-53); RED BLOOD COUNT 2.37 M/uL (3.80-5.20); WHITE BLOOD COUNT 5.1 K/uL (4.1-10.2)
[2017-03-09 14:12] VITALS: BP 141/65
[2017-03-09 14:21] LABS: POINT-OF-CARE METER ID UU14188625
[2017-03-09 17:13] VITALS: BP 137/65
[2017-03-09 17:25] LABS: POINT-OF-CARE METER ID UU14188625
[2017-03-09 22:05] LABS: POINT-OF-CARE METER ID UU14188625
[2017-03-09 23:52] VITALS: BP 111/59
[2017-03-10 07:25] LABS: HEMATOCRIT 25.5 % (36.0-46.0); MCHC 30.2 G/DL (30.0-36.0); MCV 102.8 FL (83-99); MEAN PLAT.VOLUME 10.6 uM^3 (9.5-12.4); PLATELET COUNT 147 K/uL (156-360); RBC DIS.WIDTH-CV 16.7 % (11.8-14.6); RBC DIS.WIDTH-SD 63.5 % (39-53); RED BLOOD COUNT 2.48 M/uL (3.80-5.20); WHITE BLOOD COUNT 5.4 K/uL (4.1-10.2)
[2017-03-10 07:35] LABS: POINT-OF-CARE METER ID UU14174225
[2017-03-10 07:43] LABS: ANION GAP 11 MEQ/L (2-14); CHLORIDE 94 MEQ/L (99-109); GFR ESTIMATE (CALCULATED) 11 mL/min/; GLUCOSE 172 mg/dL (70-99); POTASSIUM 4.8 MEQ/L (3.7-5.4); SAMPLE HEMOLYSIS CHECK 0; SAMPLE ICTERIC CHECK 0; SAMPLE LIPEMIA CHECK 0; SODIUM 134 MEQ/L (136-147); UREA NITROGEN (BUN) 30 mg/dL (9-23)
[2017-03-10 07:47] VITALS: BP 105/51
[2017-03-10 10:11] LABS: TROP-I INTERPRETATION NEGATIVE; TROPONIN-I 0.02 ng/mL (0.0-0.30)
[2017-03-10 11:19] LABS: POINT-OF-CARE METER ID UU14174225
[2017-03-10 15:15] VITALS: BP 128/64
[2017-03-10 16:11] LABS: POINT-OF-CARE METER ID UU14174225
[2017-03-10 20:30] VITALS: BP 143/66
[2017-03-10 23:51] VITALS: BP 121/58
[2017-03-11 08:06] VITALS: BP 132/71
[2017-03-11 08:15] LABS: POINT-OF-CARE METER ID UU14174225
[2017-03-11 09:10] LABS: ANION GAP 12 MEQ/L (2-14); CHLORIDE 93 MEQ/L (99-109); GFR ESTIMATE (CALCULATED) 8 mL/min/; GLUCOSE 203 mg/dL (70-99); POTASSIUM 5.2 MEQ/L (3.7-5.4); SAMPLE HEMOLYSIS CHECK 0; SAMPLE ICTERIC CHECK 0; SAMPLE LIPEMIA CHECK 0; SODIUM 132 MEQ/L (136-147)
[2017-03-11 09:14] LABS: UREA NITROGEN (BUN) 47 mg/dL (9-23)
[2017-03-11 10:42] LABS: EOSINOPHIL (%) 4.1 % (0-5); EOSINOPHIL COUNT 0.2 K/uL (0-0.3); HEMATOCRIT 25.5 % (36.0-46.0); IMMATURE GRANULOCYTE (%) 0.5 % (0.0-0.7); INSTRUMENT ABS NEUTROPHIL CT 2.8 K/uL; LYMPHOCYTE COUNT 1.1 K/uL (1.0-2.8); MCHC 30.2 G/DL (30.0-36.0); MCV 102.8 FL (83-99); MEAN PLAT.VOLUME 10.9 uM^3 (9.5-12.4); MONOCYTE (%) 6.2 % (3-12); MONOCYTE COUNT 0.3 K/uL (0-0.8); NEUTROPHIL COUNT 2.8 K/uL (1.8-6.4); PLATELET COUNT 135 K/uL (156-360); RBC DIS.WIDTH-CV 16.6 % (11.8-14.6); RBC DIS.WIDTH-SD 62.4 % (39-53); RED BLOOD COUNT 2.48 M/uL (3.80-5.20); WHITE BLOOD COUNT 4.4 K/uL (4.1-10.2)
[2017-03-11] MEDS ORDERED: FERROUS SULFAT325 MG PO (10:59)
[2017-03-11] MEDS ORDERED: AMLODIPINE BESYL5 MG PO (11:00)
[2017-03-11] MEDS ORDERED: PANTOPRAZOLE SO40 MG PO (11:00)
[2017-03-11] MEDS ORDERED: LEVEMIR100 UNIT/2 SC (11:01)
[2017-03-11] MEDS ORDERED: NOVOLOG PE100 UNITS/ SC (11:01)
[2017-03-11] MEDS ORDERED: GABAPENTIN100 MG PO (14:59)
[2017-03-11 21:11] VITALS: BP 132/80
[2017-03-11 23:17] VITALS: BP 121/58
[2017-03-12 07:23] LABS: HEMATOCRIT 24.8 % (36.0-46.0); MCH 31.3 PG (29.0-34.0); MCHC 30.6 G/DL (30.0-36.0); MCV 102.1 FL (83-99); PLATELET COUNT 145 K/uL (156-360); RBC DIS.WIDTH-SD 63.4 % (39-53); RED BLOOD COUNT 2.43 M/uL (3.80-5.20); WHITE BLOOD COUNT 4.4 K/uL (4.1-10.2)
[2017-03-12 07:56] LABS: POINT-OF-CARE METER ID UU14188625
[2017-03-12 07:57] VITALS: BP 117/56
[2017-03-12 11:42] LABS: POINT-OF-CARE METER ID UU14174225
[2017-03-12 16:01] VITALS: BP 115/67
[2017-03-12 21:13] LABS: POINT-OF-CARE METER ID UU14174225
[2017-03-12 23:48] VITALS: BP 141/67
[2017-03-13 07:26] VITALS: BP 111/54
[2017-03-13 07:39] LABS: POINT-OF-CARE METER ID UU14174225
[2017-03-13 09:26] LABS: ANION GAP 12 MEQ/L (2-14); CHLORIDE 92 MEQ/L (99-109); POTASSIUM 4.2 MEQ/L (3.7-5.4); SAMPLE HEMOLYSIS CHECK 0; SAMPLE ICTERIC CHECK 0; SAMPLE LIPEMIA CHECK 0; SODIUM 132 MEQ/L (136-147)
[2017-03-13 09:35] LABS: GFR ESTIMATE (CALCULATED) 9 mL/min/; GLUCOSE 255 mg/dL (70-99); UREA NITROGEN (BUN) 41 mg/dL (9-23)
[2017-03-13 11:10] LABS: EOSINOPHIL (%) 2.7 % (0-5); EOSINOPHIL COUNT 0.1 K/uL (0-0.3); HEMATOCRIT 26.5 % (36.0-46.0); IMMATURE GRANULOCYTE (%) 0.5 % (0.0-0.7); INSTRUMENT ABS NEUTROPHIL CT 2.8 K/uL; LYMPHOCYTE COUNT 0.8 K/uL (1.0-2.8); MCH 30.9 PG (29.0-34.0); MCHC 30.6 G/DL (30.0-36.0); MCV 101.1 FL (83-99); MEAN PLAT.VOLUME 10.6 uM^3 (9.5-12.4); MONOCYTE (%) 5.7 % (3-12); MONOCYTE COUNT 0.2 K/uL (0-0.8); NEUTROPHIL (%) 70.1 % (45-76); NEUTROPHIL COUNT 2.8 K/uL (1.8-6.4); PLATELET COUNT 150 K/uL (156-360); RBC DIS.WIDTH-CV 16.8 % (11.8-14.6); RBC DIS.WIDTH-SD 61.5 % (39-53); RED BLOOD COUNT 2.62 M/uL (3.80-5.20); WHITE BLOOD COUNT 4.1 K/uL (4.1-10.2)
[2017-03-13 15:43] VITALS: BP 162/72
[2017-03-19] MEDS ORDERED: NEPHRO-VITE RX1 EACH PO (14:31)
== END 2017-03-13 17:23 | DRG 252 ==
LOC: EME → EDBD 11:26 → EME 11:26 → 4EAST 13:40 → 5SOUTH 13:40 → EDOF 13:40 → 4EAST 15:41 → 5SOUTH 03-04 22:44
PROVIDERS: Emergency Medicine; Family Medicine; Hospitalist; Internal Medicine; Internal Medicine Gastroenterology; Internal Medicine Nephrology; Nurse Practitioner Adult Health; Physician Assistant; Physician Assistant Medical; Student in an Organized Health Care Education/Training Program
PROC: 5A1D60Z (ICD-10-PCS; principal; 2017-02-27)
PROC: 05CY0ZZ Extirpation of Matter from Upper Vein, Open Approach (ICD-10-PCS; 2017-03-08)
PROC: 03CY0ZZ Extirpation of Matter from Upper Artery, Open Approach (ICD-10-PCS; 2017-03-08)
PROC: 3E03317 Introduction of Other Thrombolytic into Peripheral Vein, Percutaneous Approach (ICD-10-PCS; 2017-03-08)
PROC: 05HY33Z Insertion of Infusion Device into Upper Vein, Percutaneous Approach (ICD-10-PCS; 2017-03-08)
PROC: B51W1ZZ Fluoroscopy of Dialysis Shunt/Fistula using Low Osmolar Contrast (ICD-10-PCS; 2017-03-08)
PROC: 05WY0JZ Revision of Synthetic Substitute in Upper Vein, Open Approach (ICD-10-PCS; 2017-03-08)
DX: T82.7XXA Infection and inflammatory reaction due to other cardiac and vascular devices, implants and grafts, initial encounter (principal); A41.01 Sepsis due to Methicillin susceptible Staphylococcus aureus; G93.41 Metabolic encephalopathy; T82.898A Other specified complication of vascular prosthetic devices, implants and grafts, initial encounter; Y83.2 Surgical operation with anastomosis, bypass or graft as the cause of abnormal reaction of the patient, or of later complication, without mention of misadventure at the time of the procedure; I13.2 Hypertensive heart and chronic kidney disease with heart failure and with stage 5 chronic kidney disease, or end stage renal disease; I50.30 Unspecified diastolic (congestive) heart failure; N18.6 End stage renal disease; E11.22 Type 2 diabetes mellitus with diabetic chronic kidney disease; Z99.2 Dependence on renal dialysis; L89.320 Pressure ulcer of left buttock, unstageable; L89.312 Pressure ulcer of right buttock, stage 2; E11.621 Type 2 diabetes mellitus with foot ulcer; L97.521 Non-pressure chronic ulcer of other part of left foot limited to breakdown of skin; E11.628 Type 2 diabetes mellitus with other skin complications; L03.113 Cellulitis of right upper limb; M62.82 Rhabdomyolysis; E11.65 Type 2 diabetes mellitus with hyperglycemia; E11.42 Type 2 diabetes mellitus with diabetic polyneuropathy; I25.10 Atherosclerotic heart disease of native coronary artery without angina pectoris; E66.01 Morbid (severe) obesity due to excess calories; Z68.41 Body mass index [BMI] 40.0-44.9, adult; K92.1 Melena; N39.0 Urinary tract infection, site not specified; B96.20 Unspecified Escherichia coli [E. coli] as the cause of diseases classified elsewhere; D63.1 Anemia in chronic kidney disease; D50.9 Iron deficiency anemia, unspecified; D69.6 Thrombocytopenia, unspecified; K59.00 Constipation, unspecified; I83.893 Varicose veins of bilateral lower extremities with other complications; I89.0 Lymphedema, not elsewhere classified; I25.2 Old myocardial infarction; E78.5 Hyperlipidemia, unspecified; G89.4 Chronic pain syndrome; J44.9 Chronic obstructive pulmonary disease, unspecified; J45.909 Unspecified asthma, uncomplicated; F32.9 Major depressive disorder, single episode, unspecified; F41.9 Anxiety disorder, unspecified; F17.200 Nicotine dependence, unspecified, uncomplicated; Z79.4 Long term (current) use of insulin; S91.312D Laceration without foreign body, left foot, subsequent encounter; Z86.73 Personal history of transient ischemic attack (TIA), and cerebral infarction without residual deficits; Z86.718 Personal history of other venous thrombosis and embolism; Z95.5 Presence of coronary angioplasty implant and graft; Z91.15 Patient's noncompliance with renal dialysis
CPT/HCPCS: 71010; 74000; 76705; 80048; 80069; 80076; 80202; 81003; 82140; 82272; 82550; 82550 91; 82553; 82607; 82728; 82746; 82948; 83540; 83605; 84466; 84484; 85014; 85018; 85025; 85027; 85610; 85730; 87040; 87070; 87075; 87076; 87077; 87086; 87147; 87186; 87205; 87801; 92610 GN; 93005; 93306; 93971; 94640; 94640 76; 94799; 97530 GO; 97530 GP; 99202; 99281; 99285; C1757; C1769; C1894; C9113; J0690; J0881; J1644; J1815; J2405; J2543; J3010; J3370; J7030; J7040; J7050; J7120

== ENCOUNTER 2017-05-13 17:09 | Inpatient (IN) | payer OTHER ==
[~2017-05-13] VITALS: Ht 167.6 cm; Wt 119.7 kg
[~2017-05-13 17:09] MED LIST changes: +AMLODIPINE BESYL5 MG PO; +FERROUS SULFAT325 MG PO; +GABAPENTIN100 MG PO; +LEVEMIR100 UNIT/2 SC; +NEPHRO-VITE RX1 EACH PO
[2017-05-13 18:45] LABS: HEMATOCRIT 34.1 % (36.0-46.0); MCH 34.9 PG (29.0-34.0); MCHC 32.3 G/DL (30.0-36.0); MCV 108.3 FL (83-99); MEAN PLAT.VOLUME 9.9 uM^3 (9.5-12.4); NRBC (%) 0.2 /100 WBC (0-0); PLATELET COUNT 82 K/uL (156-360); RBC DIS.WIDTH-CV 16.4 % (11.8-14.6); RBC DIS.WIDTH-SD 66.6 % (39-53); RED BLOOD COUNT 3.15 M/uL (3.80-5.20); WHITE BLOOD COUNT 8.9 K/uL (4.1-10.2)
[2017-05-13 19:39] LABS: ADD MIUA? YES; BILIRUBIN NEGATIVE; BLOOD TRACE; COLOR BROWN ((YELLOW)); GLUCOSE (STRIP) NEGATIVE; KETONES NEGATIVE; LEUKOCYTES MODERATE; NITRITE NEGATIVE; PH, URINE 8.5 (5-8); PROTEIN (STRIP) >=2000; UROBILINOGEN 0.2 MG/DL (0.2-1.0)
[2017-05-13 19:41] LABS: CHLORIDE 90 mEq/L (99-109); POTASSIUM 3.6 mEq/L (3.7-5.4); SODIUM 135 mEq/L (136-147)
[2017-05-13 19:44] LABS: GLUCOSE 203 mg/dL (70-99)
[2017-05-13 19:45] LABS: ANION GAP 15 MEQ/L (2-14)
[2017-05-13 19:46] LABS: TOTAL BILIRUBIN 0.9 mg/dL (0.0-1.0)
[2017-05-13 19:47] LABS: ALKALINE PHOSPHATASE 109 IU/L (3-129); GFR ESTIMATE (CALCULATED) 16 mL/min/
[2017-05-13 19:48] LABS: UREA NITROGEN (BUN) 18 mg/dL (9-23)
[2017-05-13 20:07] LABS: EPITHELIAL CELLS RARE /HPF; MUCUS NONE SEEN /LPF; RED BLOOD CELLS 0-5 /HPF (0-5); WHITE BLOOD CELLS TNTC /HPF (0-5)
[2017-05-13 20:08] LABS: BACTERIA 4+ /HPF; CASTS NONE SEEN /LPF; CRYSTALS NONE SEEN
[2017-05-13] MEDS ORDERED: IRON325 M1 PO (22:20)
[2017-05-13] MEDS ORDERED: LITE COAT ASPI325 M1 PO (22:21)
[2017-05-13] MEDS ORDERED: GABAPENTIN400 MG PO (22:21)
[2017-05-13] MEDS ORDERED: AMLODIPINE BESYL5 MG PO (22:21)
[2017-05-13] MEDS ORDERED: HUMALOG100 UNIT/1 SC (22:22)
[2017-05-13] MEDS ORDERED: LEVEMIR100 UNIT/2 SC (22:22)
[2017-05-13] MEDS ORDERED: JANUVIA25 MG PO (22:23)
[2017-05-13] MEDS ORDERED: ADVAIR HFA120 INHALA IH (22:23)
[2017-05-14 04:33] VITALS: BP 143/63
[2017-05-14 07:06] LABS: METH RESISTANT S AUREUS PCR NEGATIVE (NEGATIVE)
[2017-05-14 07:07] LABS: PROBE CHECK PASS; SPECIMEN PROCESSING CONTROL PASS
[2017-05-14 07:16] LABS: EOSINOPHIL (%) 0.2 % (0-5); IMMATURE GRANULOCYTE (%) 0.3 % (0.0-0.7); INSTRUMENT ABS NEUTROPHIL CT 5.5 K/uL; LYMPHOCYTE COUNT 0.5 K/uL (1.0-2.8); MCH 35.7 PG (29.0-34.0); MCHC 32.5 G/DL (30.0-36.0); MCV 109.8 FL (83-99); MEAN PLAT.VOLUME 10.4 uM^3 (9.5-12.4); MONOCYTE (%) 6.3 % (3-12); MONOCYTE COUNT 0.4 K/uL (0-0.8); NEUTROPHIL (%) 85.7 % (45-76); NEUTROPHIL COUNT 5.5 K/uL (1.8-6.4); PLATELET COUNT 71 K/uL (156-360); RBC DIS.WIDTH-CV 16.7 % (11.8-14.6); RBC DIS.WIDTH-SD 67.8 % (39-53); RED BLOOD COUNT 2.55 M/uL (3.80-5.20); WHITE BLOOD COUNT 6.4 K/uL (4.1-10.2)
[2017-05-14 07:40] VITALS: BP 114/56
[2017-05-14 07:45] LABS: ANION GAP 12 MEQ/L (2-14); CHLORIDE 92 MEQ/L (99-109); GFR ESTIMATE (CALCULATED) 14 mL/min/; GLUCOSE 209 mg/dL (70-99); POTASSIUM 4.3 MEQ/L (3.7-5.4); SAMPLE HEMOLYSIS CHECK 0; SAMPLE ICTERIC CHECK 0; SAMPLE LIPEMIA CHECK 0; SODIUM 134 MEQ/L (136-147); UREA NITROGEN (BUN) 26 mg/dL (9-23); VANCOMYCIN, TROUGH 11.5 MCG/ML (10-20)
[2017-05-14 11:35] VITALS: BP 115/49
[2017-05-14 15:50] VITALS: BP 110/51
[2017-05-14 19:47] VITALS: BP 106/55
[2017-05-14 23:25] VITALS: BP 111/60
[2017-05-15 03:58] VITALS: BP 105/54
[2017-05-15 07:56] VITALS: BP 135/61
[2017-05-15 09:37] LABS: EOSINOPHIL (%) 4.7 % (0-5); EOSINOPHIL COUNT 0.2 K/uL (0-0.3); HEMATOCRIT 25.1 % (36.0-46.0); IMMATURE GRANULOCYTE (%) 0.5 % (0.0-0.7); INSTRUMENT ABS NEUTROPHIL CT 2.8 K/uL; LYMPHOCYTE COUNT 0.5 K/uL (1.0-2.8); MCH 35.2 PG (29.0-34.0); MCHC 32.3 G/DL (30.0-36.0); MCV 109.1 FL (83-99); MONOCYTE (%) 11.4 % (3-12); MONOCYTE COUNT 0.5 K/uL (0-0.8); NEUTROPHIL COUNT 2.8 K/uL (1.8-6.4); PLATELET COUNT 74 K/uL (156-360); RBC DIS.WIDTH-CV 16.5 % (11.8-14.6); RBC DIS.WIDTH-SD 66.4 % (39-53)
[2017-05-15 10:13] LABS: ANION GAP 12 MEQ/L (2-14); CHLORIDE 92 MEQ/L (99-109); GFR ESTIMATE (CALCULATED) 9 mL/min/; GLUCOSE 205 mg/dL (70-99); POTASSIUM 3.8 MEQ/L (3.7-5.4); SAMPLE HEMOLYSIS CHECK 0; SAMPLE ICTERIC CHECK 0; SAMPLE LIPEMIA CHECK 0; SODIUM 133 MEQ/L (136-147)
[2017-05-15 10:17] LABS: UREA NITROGEN (BUN) 56 mg/dL (9-23)
[2017-05-15 16:03] VITALS: BP 120/56
[2017-05-15 19:09] VITALS: BP 93/52
[2017-05-16 01:29] VITALS: BP 104/51
[2017-05-16 03:16] VITALS: BP 94/53
[2017-05-16 07:22] LABS: POINT-OF-CARE METER ID UU14208750
[2017-05-16 07:24] LABS: EOSINOPHIL (%) 5.5 % (0-5); EOSINOPHIL COUNT 0.2 K/uL (0-0.3); HEMATOCRIT 31.6 % (36.0-46.0); IMMATURE GRANULOCYTE (%) 0.6 % (0.0-0.7); INSTRUMENT ABS NEUTROPHIL CT 1.5 K/uL; LYMPHOCYTE COUNT 1.2 K/uL (1.0-2.8); MCH 33.6 PG (29.0-34.0); MCHC 31.3 G/DL (30.0-36.0); MCV 107.1 FL (83-99); MEAN PLAT.VOLUME 9.7 uM^3 (9.5-12.4); MONOCYTE (%) 18.8 % (3-12); MONOCYTE COUNT 0.7 K/uL (0-0.8); NEUTROPHIL (%) 41.6 % (45-76); NEUTROPHIL COUNT 1.5 K/uL (1.8-6.4); PLATELET COUNT 76 K/uL (156-360); RBC DIS.WIDTH-SD 63.6 % (39-53); WHITE BLOOD COUNT 3.6 K/uL (4.1-10.2)
[2017-05-16 07:25] LABS: RED BLOOD COUNT 2.95 M/uL (3.80-5.20)
[2017-05-16 07:26] VITALS: BP 99/52
[2017-05-16 07:30] LABS: ANION GAP 14 MEQ/L (2-14); CHLORIDE 95 MEQ/L (99-109); POTASSIUM 4.1 MEQ/L (3.7-5.4); SAMPLE HEMOLYSIS CHECK 0; SAMPLE ICTERIC CHECK 0; SAMPLE LIPEMIA CHECK 0; SODIUM 135 MEQ/L (136-147)
[2017-05-16 08:00] LABS: GFR ESTIMATE (CALCULATED) 13 mL/min/; GLUCOSE 217 mg/dL (70-99); UREA NITROGEN (BUN) 34 mg/dL (9-23)
[2017-05-16 12:02] VITALS: BP 105/56
[2017-05-16 12:08] LABS: POINT-OF-CARE METER ID UU14208750
[2017-05-16 15:47] LABS: POINT-OF-CARE METER ID UU14208750
[2017-05-16 21:07] VITALS: BP 132/62
[2017-05-16 21:32] LABS: POINT-OF-CARE METER ID UU14208750
[2017-05-17 00:51] VITALS: BP 137/64
[2017-05-17 04:33] VITALS: BP 145/69
[2017-05-17 07:09] LABS: POINT-OF-CARE METER ID UU14208750
[2017-05-17 07:35] VITALS: BP 110/56
[2017-05-17 07:45] LABS: EOSINOPHIL (%) 7.2 % (0-5); EOSINOPHIL COUNT 0.3 K/uL (0-0.3); HEMATOCRIT 28.2 % (36.0-46.0); IMMATURE GRANULOCYTE (%) 1.1 % (0.0-0.7); MCH 35.8 PG (29.0-34.0); MCHC 32.6 G/DL (30.0-36.0); MCV 109.7 FL (83-99); MEAN PLAT.VOLUME 10.2 uM^3 (9.5-12.4); MONOCYTE (%) 8.3 % (3-12); MONOCYTE COUNT 0.3 K/uL (0-0.8); NEUTROPHIL (%) 55.3 % (45-76); RBC DIS.WIDTH-CV 16.1 % (11.8-14.6); RBC DIS.WIDTH-SD 65.1 % (39-53); RED BLOOD COUNT 2.57 M/uL (3.80-5.20); WHITE BLOOD COUNT 3.6 K/uL (4.1-10.2)
[2017-05-17 08:04] LABS: ANION GAP 16 MEQ/L (2-14); CHLORIDE 94 MEQ/L (99-109); POTASSIUM 4.1 MEQ/L (3.7-5.4); SAMPLE HEMOLYSIS CHECK 0; SAMPLE ICTERIC CHECK 0; SAMPLE LIPEMIA CHECK 0; SODIUM 136 MEQ/L (136-147)
[2017-05-17 08:05] LABS: PLATELET COUNT 104 K/uL (156-360)
[2017-05-17 08:12] LABS: GFR ESTIMATE (CALCULATED) 9 mL/min/; GLUCOSE 181 mg/dL (70-99); UREA NITROGEN (BUN) 51 mg/dL (9-23)
[2017-05-17 12:01] LABS: POINT-OF-CARE METER ID UU14208750
[2017-05-17 12:04] VITALS: BP 131/60
[2017-05-17 15:35] VITALS: BP 111/53
[2017-05-17 16:01] LABS: POINT-OF-CARE METER ID UU14208750
[2017-05-17 23:41] VITALS: BP 141/63
[2017-05-18 07:13] LABS: POINT-OF-CARE USER ID PUTDRM
[2017-05-18 08:56] LABS: EOSINOPHIL COUNT 0.3 K/uL (0-0.3); HEMATOCRIT 26.6 % (36.0-46.0); IMMATURE GRANULOCYTE (%) 0.7 % (0.0-0.7); INSTRUMENT ABS NEUTROPHIL CT 2.6 K/uL; MCHC 31.6 G/DL (30.0-36.0); MCV 107.7 FL (83-99); MEAN PLAT.VOLUME 9.6 uM^3 (9.5-12.4); MONOCYTE (%) 7.5 % (3-12); MONOCYTE COUNT 0.3 K/uL (0-0.8); NEUTROPHIL (%) 61.3 % (45-76); NEUTROPHIL COUNT 2.6 K/uL (1.8-6.4); PLATELET COUNT 91 K/uL (156-360); RBC DIS.WIDTH-SD 63.5 % (39-53); RED BLOOD COUNT 2.47 M/uL (3.80-5.20); WHITE BLOOD COUNT 4.3 K/uL (4.1-10.2)
[2017-05-18 09:00] LABS: ANION GAP 19 MEQ/L (2-14); CHLORIDE 94 MEQ/L (99-109); POTASSIUM 4.6 MEQ/L (3.7-5.4); SAMPLE HEMOLYSIS CHECK 0; SAMPLE ICTERIC CHECK 0; SAMPLE LIPEMIA CHECK 0; SODIUM 134 MEQ/L (136-147)
[2017-05-18 09:06] LABS: GFR ESTIMATE (CALCULATED) 7 mL/min/; GLUCOSE 235 mg/dL (70-99); UREA NITROGEN (BUN) 63 mg/dL (9-23)
[2017-05-18 13:45] VITALS: BP 144/64
[2017-05-18 13:53] LABS: POINT-OF-CARE USER ID PUTDRM
== END 2017-05-18 14:58 | disposition home health service (06) | DRG 871 ==
LOC: EME 17:09 → 2EASTP 22:40 → EDOF 22:40 → 2EASTP 05-14 04:10
PROVIDERS: Hospitalist; Internal Medicine; Internal Medicine Nephrology; Nurse Practitioner Family
PROC: 5A1D60Z (ICD-10-PCS; principal; 2017-05-18)
DX: A41.01 Sepsis due to Methicillin susceptible Staphylococcus aureus (principal); G93.41 Metabolic encephalopathy; N10 Acute pyelonephritis; N18.6 End stage renal disease; L03.90 Cellulitis, unspecified; D61.818 Other pancytopenia; E11.22 Type 2 diabetes mellitus with diabetic chronic kidney disease; E11.40 Type 2 diabetes mellitus with diabetic neuropathy, unspecified; I13.2 Hypertensive heart and chronic kidney disease with heart failure and with stage 5 chronic kidney disease, or end stage renal disease; E11.65 Type 2 diabetes mellitus with hyperglycemia; J44.9 Chronic obstructive pulmonary disease, unspecified; I25.10 Atherosclerotic heart disease of native coronary artery without angina pectoris; I50.32 Chronic diastolic (congestive) heart failure; Z68.41 Body mass index [BMI] 40.0-44.9, adult; Z79.4 Long term (current) use of insulin; E66.01 Morbid (severe) obesity due to excess calories; F17.200 Nicotine dependence, unspecified, uncomplicated; K21.9 Gastro-esophageal reflux disease without esophagitis; I89.0 Lymphedema, not elsewhere classified; E87.2 Acidosis; E78.5 Hyperlipidemia, unspecified; Z79.82 Long term (current) use of aspirin; Z79.84 Long term (current) use of oral hypoglycemic drugs; Z79.899 Other long term (current) drug therapy; Z99.2 Dependence on renal dialysis; I25.2 Old myocardial infarction; Z86.73 Personal history of transient ischemic attack (TIA), and cerebral infarction without residual deficits; Z87.442 Personal history of urinary calculi; Z95.5 Presence of coronary angioplasty implant and graft
CPT/HCPCS: 70450; 71020; 80048; 80053; 80069; 80170; 80202; 81003; 82140; 82948; 83605; 85025; 85027; 87040; 87077; 87086; 87147; 87186; 87641; 87801; 93005; 93306; 93970; 94640; 94640 76; 94799; 99281; 99285; C1753; J0881; J1270; J1644; J1756; J1815; J3370; J7030; J7050; S0032

== ENCOUNTER 2017-06-07 16:39 | Emergency (ER) | payer OTHER ==
[~2017-06-07] VITALS: Ht 167.6 cm; Wt 113.0 kg
[~2017-06-07 16:39] MED LIST changes: +IRON325 M1 PO
[2017-06-07] MEDS ORDERED: KEFLEX500 MG PO (17:53)
[2017-06-07 18:32] VITALS: BP 144/86
== END 2017-06-07 18:38 | disposition home or self-care (01) ==
LOC: EME 16:39
PROC: 3E0234Z Introduction of Serum, Toxoid and Vaccine into Muscle, Percutaneous Approach (ICD-10-PCS; principal; 2017-06-07)
DX: S91.112A Laceration without foreign body of left great toe without damage to nail, initial encounter (principal); S91.115A Laceration without foreign body of left lesser toe(s) without damage to nail, initial encounter; X58.XXXA Exposure to other specified factors, initial encounter; Z23 Encounter for immunization; R60.0 Localized edema; G89.29 Other chronic pain; M79.662 Pain in left lower leg; I12.0 Hypertensive chronic kidney disease with stage 5 chronic kidney disease or end stage renal disease; E11.22 Type 2 diabetes mellitus with diabetic chronic kidney disease; N18.6 End stage renal disease; Z99.2 Dependence on renal dialysis; Z79.4 Long term (current) use of insulin; Z79.02 Long term (current) use of antithrombotics/antiplatelets; Z79.82 Long term (current) use of aspirin; E78.5 Hyperlipidemia, unspecified; J44.9 Chronic obstructive pulmonary disease, unspecified; F17.200 Nicotine dependence, unspecified, uncomplicated
CPT/HCPCS: 99281; 99284

== ENCOUNTER 2017-06-12 19:24 | Inpatient (IN) | payer OTHER ==
[~2017-06-12] VITALS: Ht 167.6 cm; Wt 121.9 kg
[~2017-06-12 19:24] MED LIST changes: +NOVOLOG 10100 UNITS/ SC
[2017-06-12 21:27] LABS: EOSINOPHIL (%) 0.2 % (0-5); HEMATOCRIT 32.7 % (36.0-46.0); IMMATURE GRANULOCYTE (%) 0.5 % (0.0-0.7); INSTRUMENT ABS NEUTROPHIL CT 7.8 K/uL; LYMPHOCYTE COUNT 0.2 K/uL (1.0-2.8); MCH 35.1 PG (29.0-34.0); MCHC 32.7 G/DL (30.0-36.0); MCV 107.2 FL (83-99); MEAN PLAT.VOLUME 9.9 uM^3 (9.5-12.4); MONOCYTE (%) 3.6 % (3-12); MONOCYTE COUNT 0.3 K/uL (0-0.8); NEUTROPHIL (%) 92.8 % (45-76); NEUTROPHIL COUNT 7.8 K/uL (1.8-6.4); PLATELET COUNT 107 K/uL (156-360); RBC DIS.WIDTH-CV 15.2 % (11.8-14.6); RBC DIS.WIDTH-SD 60.1 % (39-53); WHITE BLOOD COUNT 8.4 K/uL (4.1-10.2)
[2017-06-12 21:35] LABS: CHLORIDE 95 mEq/L (99-109); POTASSIUM 4.7 mEq/L (3.7-5.4); SODIUM 134 mEq/L (136-147)
[2017-06-12 21:37] LABS: GLUCOSE 272 mg/dL (70-99)
[2017-06-12 21:38] LABS: ANION GAP 16 MEQ/L (2-14)
[2017-06-12 21:40] LABS: ALKALINE PHOSPHATASE 83 IU/L (3-129); GFR ESTIMATE (CALCULATED) 15 mL/min/
[2017-06-12 21:42] LABS: UREA NITROGEN (BUN) 17 mg/dL (9-23)
[2017-06-12 21:47] LABS: RED BLOOD COUNT 3.05 M/uL (3.80-5.20)
[2017-06-12] MEDS ORDERED: FERRIC CITRATE210 MG PO (22:38)
[2017-06-12] MEDS ORDERED: KEFLEX500 MG PO (22:38)
[2017-06-12 22:39] LABS: ADD MIUA? YES; BILIRUBIN NEGATIVE; BLOOD SMALL; COLOR AMBER ((YELLOW)); GLUCOSE (STRIP) >=500; KETONES NEGATIVE; LEUKOCYTES LARGE; NITRITE NEGATIVE; PROTEIN (STRIP) >=500; SPECIFIC GRAVITY 1.013 (1.000-1.030); UROBILINOGEN 0.2 MG/DL (0.2-1.0)
[2017-06-12] MEDS ORDERED: PROTONIX40 MG PO (22:40)
[2017-06-12] MEDS ORDERED: ONE-A-DAY ESSE1 EAC1 PO (22:40)
[2017-06-12 22:55] LABS: WHITE BLOOD CELLS TNTC /HPF (0-5)
[2017-06-12 22:56] LABS: BACTERIA 3+ /HPF; CASTS PRESENT /LPF; CRYSTALS NONE SEEN; EPITHELIAL CELLS RARE /HPF; FINE GRANULAR CASTS 0-5 /LPF; MUCUS NONE SEEN /LPF; UCUL ADDED? YES
[2017-06-13] VITALS (7 sets, daily range): BP systolic 91–180; BP diastolic 53–78
[2017-06-13 01:02] LABS: TROP-I INTERPRETATION NEGATIVE; TROPONIN-I 0.02 ng/mL (0.0-0.30)
[2017-06-13 07:14] LABS: EOSINOPHIL (%) 0.1 % (0-5); HEMATOCRIT 28.2 % (36.0-46.0); IMMATURE GRANULOCYTE (%) 0.5 % (0.0-0.7); INSTRUMENT ABS NEUTROPHIL CT 6.9 K/uL; LYMPHOCYTE COUNT 0.4 K/uL (1.0-2.8); MCH 36.5 PG (29.0-34.0); MCV 110.6 FL (83-99); MEAN PLAT.VOLUME 10.3 uM^3 (9.5-12.4); MONOCYTE COUNT 0.4 K/uL (0-0.8); NEUTROPHIL (%) 89.1 % (45-76); NEUTROPHIL COUNT 6.9 K/uL (1.8-6.4); PLATELET COUNT 98 K/uL (156-360); RBC DIS.WIDTH-CV 15.4 % (11.8-14.6); RED BLOOD COUNT 2.55 M/uL (3.80-5.20); WHITE BLOOD COUNT 7.7 K/uL (4.1-10.2)
[2017-06-13 07:41] LABS: ANION GAP 11 MEQ/L (2-14); CHLORIDE 94 MEQ/L (99-109); GFR ESTIMATE (CALCULATED) 13 mL/min/; GLUCOSE 278 mg/dL (70-99); POTASSIUM 4.6 MEQ/L (3.7-5.4); SAMPLE HEMOLYSIS CHECK 0; SAMPLE ICTERIC CHECK 0; SAMPLE LIPEMIA CHECK 0; SODIUM 133 MEQ/L (136-147); UREA NITROGEN (BUN) 22 mg/dL (9-23)
[2017-06-13 07:42] LABS: TROP-I INTERPRETATION NEGATIVE; TROPONIN-I 0.03 ng/mL (0.0-0.30)
[2017-06-13 08:07] LABS: METH RESISTANT S AUREUS PCR NEGATIVE (NEGATIVE)
[2017-06-13 08:08] LABS: PROBE CHECK PASS; SPECIMEN PROCESSING CONTROL PASS
[2017-06-13 11:00] LABS: BASE EXCESS 6.1 mEq/L (-3 to +3); BICARBONATE 30.6 mEq/L (22-26); CARBOXY HGB 3.8 % (0-5); COMMENTS - BLOOD GASES A+C+; DEVICE NC; METHEMOGLOBIN 1.1 % (0-1.5); O2 FLOW 1 L/MIN; PCO2 43 mm Hg (35-45); PO2 73 mm Hg (80-100); SITE LR; TOTAL RESP RATE 14 resp/min; pH 7.46 (7.35-7.45)
[2017-06-13 17:59] LABS: POINT-OF-CARE METER ID UU14188577
[2017-06-14 03:41] VITALS: BP 129/70
[2017-06-14 07:37] LABS: POINT-OF-CARE METER ID UU14188577
[2017-06-14 08:06] LABS: HEMATOCRIT 27.9 % (36.0-46.0); MCH 34.5 PG (29.0-34.0); MCHC 30.8 G/DL (30.0-36.0); PLATELET COUNT 79 K/uL (156-360); RBC DIS.WIDTH-CV 15.6 % (11.8-14.6); RBC DIS.WIDTH-SD 64.4 % (39-53); RED BLOOD COUNT 2.49 M/uL (3.80-5.20); WHITE BLOOD COUNT 5.7 K/uL (4.1-10.2)
[2017-06-14 08:23] VITALS: BP 128/60
[2017-06-14 09:18] LABS: ANION GAP 12 MEQ/L (2-14); CHLORIDE 97 MEQ/L (99-109); GFR ESTIMATE (CALCULATED) 8 mL/min/; GLUCOSE 157 mg/dL (70-99); POTASSIUM 4.8 MEQ/L (3.7-5.4); SAMPLE HEMOLYSIS CHECK 0; SAMPLE ICTERIC CHECK 0; SAMPLE LIPEMIA CHECK 0; SODIUM 134 MEQ/L (136-147)
[2017-06-14 09:19] LABS: UREA NITROGEN (BUN) 46 mg/dL (9-23)
[2017-06-14 11:28] VITALS: BP 114/53
[2017-06-14 12:08] LABS: POINT-OF-CARE METER ID UU14188577
[2017-06-14 16:08] VITALS: BP 109/52
[2017-06-14 23:36] VITALS: BP 103/50
[2017-06-15 03:40] VITALS: BP 112/53
[2017-06-15 06:08] VITALS: BP 114/56
[2017-06-15 06:30] LABS: POINT-OF-CARE METER ID UU14117124
[2017-06-15 09:28] LABS: HEMATOCRIT 23.4 % (36.0-46.0); MCH 34.1 PG (29.0-34.0); MCHC 31.2 G/DL (30.0-36.0); MCV 109.3 FL (83-99); MEAN PLAT.VOLUME 10.6 uM^3 (9.5-12.4); PLATELET COUNT 83 K/uL (156-360); RBC DIS.WIDTH-CV 15.7 % (11.8-14.6); RBC DIS.WIDTH-SD 62.8 % (39-53); RED BLOOD COUNT 2.14 M/uL (3.80-5.20); WHITE BLOOD COUNT 3.8 K/uL (4.1-10.2)
[2017-06-15 10:19] LABS: ANION GAP 15 MEQ/L (2-14); CHLORIDE 95 MEQ/L (99-109); GFR ESTIMATE (CALCULATED) 6 mL/min/; GLUCOSE 211 mg/dL (70-99); POTASSIUM 4.9 MEQ/L (3.7-5.4); SAMPLE HEMOLYSIS CHECK 0; SAMPLE ICTERIC CHECK 0; SAMPLE LIPEMIA CHECK 0; SODIUM 133 MEQ/L (136-147); UREA NITROGEN (BUN) 59 mg/dL (9-23)
[2017-06-15 15:13] LABS: POINT-OF-CARE METER ID UU14188577
[2017-06-15 15:30] VITALS: BP 138/65
[2017-06-15 16:34] LABS: POINT-OF-CARE METER ID UU14188577
[2017-06-15 20:56] VITALS: BP 137/83
[2017-06-15 23:37] VITALS: BP 110/60
[2017-06-16 08:08] VITALS: BP 154/72
[2017-06-16 08:46] LABS: HEMATOCRIT 25.4 % (36.0-46.0); MCH 35.8 PG (29.0-34.0); MCHC 31.9 G/DL (30.0-36.0); MCV 112.4 FL (83-99); MEAN PLAT.VOLUME 10.3 uM^3 (9.5-12.4); PLATELET COUNT 92 K/uL (156-360); RBC DIS.WIDTH-CV 15.6 % (11.8-14.6); RBC DIS.WIDTH-SD 63.7 % (39-53); RED BLOOD COUNT 2.26 M/uL (3.80-5.20); WHITE BLOOD COUNT 3.4 K/uL (4.1-10.2)
[2017-06-16 09:07] LABS: ANION GAP 11 MEQ/L (2-14); CHLORIDE 99 MEQ/L (99-109); POTASSIUM 4.6 MEQ/L (3.7-5.4); SAMPLE HEMOLYSIS CHECK 0; SAMPLE ICTERIC CHECK 0; SAMPLE LIPEMIA CHECK 0; SODIUM 137 MEQ/L (136-147)
[2017-06-16 09:13] LABS: GFR ESTIMATE (CALCULATED) 11 mL/min/; GLUCOSE 130 mg/dL (70-99)
[2017-06-16 09:16] LABS: UREA NITROGEN (BUN) 27 mg/dL (9-23)
[2017-06-16 11:24] LABS: POINT-OF-CARE METER ID UU13113819
[2017-06-16 16:30] LABS: POINT-OF-CARE METER ID UU14188577
[2017-06-16 16:54] VITALS: BP 146/78
[2017-06-16 20:17] VITALS: BP 128/60
[2017-06-16 21:38] LABS: POINT-OF-CARE METER ID UU14188577
[2017-06-17 00:01] VITALS: BP 124/66
[2017-06-17 04:26] VITALS: BP 171/74
[2017-06-17 09:20] LABS: HEMATOCRIT 24.6 % (36.0-46.0); MCH 33.8 PG (29.0-34.0); MCHC 30.9 G/DL (30.0-36.0); MCV 109.3 FL (83-99); MEAN PLAT.VOLUME 10.4 uM^3 (9.5-12.4); PLATELET COUNT 101 K/uL (156-360); RBC DIS.WIDTH-CV 15.7 % (11.8-14.6); RBC DIS.WIDTH-SD 62.8 % (39-53); RED BLOOD COUNT 2.25 M/uL (3.80-5.20); WHITE BLOOD COUNT 3.8 K/uL (4.1-10.2)
[2017-06-17 09:47] LABS: ANION GAP 11 MEQ/L (2-14); CHLORIDE 98 MEQ/L (99-109); GFR ESTIMATE (CALCULATED) 9 mL/min/; GLUCOSE 205 mg/dL (70-99); POTASSIUM 4.9 MEQ/L (3.7-5.4); SAMPLE HEMOLYSIS CHECK 0; SAMPLE ICTERIC CHECK 0; SAMPLE LIPEMIA CHECK 0; SODIUM 136 MEQ/L (136-147); UREA NITROGEN (BUN) 42 mg/dL (9-23)
[2017-06-17 16:19] VITALS: BP 143/68
[2017-06-17 20:00] VITALS: BP 120/59
[2017-06-17 23:51] VITALS: BP 104/65
[2017-06-18 04:14] VITALS: BP 109/56
[2017-06-18 06:57] LABS: HEMATOCRIT 25.2 % (36.0-46.0); MCH 34.2 PG (29.0-34.0); MCHC 31.7 G/DL (30.0-36.0); MCV 107.7 FL (83-99); MEAN PLAT.VOLUME 10.4 uM^3 (9.5-12.4); RBC DIS.WIDTH-CV 16.3 % (11.8-14.6); RBC DIS.WIDTH-SD 64.8 % (39-53); RED BLOOD COUNT 2.34 M/uL (3.80-5.20); WHITE BLOOD COUNT 4.4 K/uL (4.1-10.2)
[2017-06-18 07:06] LABS: POINT-OF-CARE METER ID UU14208753
[2017-06-18 07:15] VITALS: BP 143/66
[2017-06-18 07:18] LABS: PLATELET COUNT 141 K/uL (156-360)
[2017-06-18 10:45] LABS: ANION GAP 11 MEQ/L (2-14); CHLORIDE 94 MEQ/L (99-109); GFR ESTIMATE (CALCULATED) 12 mL/min/; GLUCOSE 231 mg/dL (70-99); SAMPLE HEMOLYSIS CHECK 0; SAMPLE ICTERIC CHECK 0; SAMPLE LIPEMIA CHECK 0; SODIUM 134 MEQ/L (136-147); UREA NITROGEN (BUN) 26 mg/dL (9-23)
[2017-06-18 11:15] VITALS: BP 126/65
[2017-06-18 12:03] LABS: POINT-OF-CARE METER ID UU14188577
[2017-06-18 15:22] VITALS: BP 138/78
[2017-06-18 17:09] LABS: POINT-OF-CARE METER ID UU14208753
[2017-06-18 19:14] VITALS: BP 119/56
[2017-06-18 22:29] LABS: POINT-OF-CARE METER ID UU14208753
[2017-06-19 00:24] VITALS: BP 124/59
[2017-06-19 04:13] VITALS: BP 135/67
[2017-06-19 06:32] LABS: POINT-OF-CARE METER ID UU14208753
[2017-06-19 08:41] LABS: EOSINOPHIL (%) 5.2 % (0-5); EOSINOPHIL COUNT 0.2 K/uL (0-0.3); HEMATOCRIT 25.5 % (36.0-46.0); IMMATURE GRANULOCYTE (%) 0.7 % (0.0-0.7); INSTRUMENT ABS NEUTROPHIL CT 2.7 K/uL; MCH 34.2 PG (29.0-34.0); MCHC 31.8 G/DL (30.0-36.0); MCV 107.6 FL (83-99); MEAN PLAT.VOLUME 10.1 uM^3 (9.5-12.4); MONOCYTE (%) 6.4 % (3-12); MONOCYTE COUNT 0.3 K/uL (0-0.8); NEUTROPHIL (%) 64.1 % (45-76); NEUTROPHIL COUNT 2.7 K/uL (1.8-6.4); PLATELET COUNT 126 K/uL (156-360); RBC DIS.WIDTH-CV 16.4 % (11.8-14.6); RED BLOOD COUNT 2.37 M/uL (3.80-5.20); WHITE BLOOD COUNT 4.2 K/uL (4.1-10.2)
[2017-06-19 08:57] LABS: ANION GAP 12 MEQ/L (2-14); CHLORIDE 91 MEQ/L (99-109); POTASSIUM 4.2 MEQ/L (3.7-5.4); SAMPLE HEMOLYSIS CHECK 0; SAMPLE ICTERIC CHECK 0; SAMPLE LIPEMIA CHECK 0; SODIUM 130 MEQ/L (136-147)
[2017-06-19 09:04] LABS: GFR ESTIMATE (CALCULATED) 9 mL/min/; GLUCOSE 231 mg/dL (70-99); UREA NITROGEN (BUN) 43 mg/dL (9-23)
[2017-06-19] MEDS ORDERED: ANCEF,KEFZ1 GM/50 ML IV (15:06)
[2017-06-19] MEDS ORDERED: ENDOCET 5-3251 EACH PO (15:11)
[2017-06-19] MEDS ORDERED: DOCUSATE SODIU100 MG PO (15:11)
[2017-06-19 16:18] VITALS: BP 131/62
[2017-06-19 16:33] LABS: POINT-OF-CARE METER ID UU14117124
== END 2017-06-19 18:22 | disposition home or self-care (01) | DRG 314 ==
LOC: EME → EDBD 19:24 → EME 19:24 → 3EAST 22:29 → EDOF 22:29 → ENRESERV 22:31 → 3EAST 06-13 00:56
PROVIDERS: Emergency Medicine; Hospitalist; Internal Medicine; Internal Medicine Nephrology; Physician Assistant
PROC: 5A1D60Z (ICD-10-PCS; 2017-06-15)
PROC: B246ZZ4 Ultrasonography of Right and Left Heart, Transesophageal (ICD-10-PCS; principal; 2017-06-16)
DX: T82.7XXA Infection and inflammatory reaction due to other cardiac and vascular devices, implants and grafts, initial encounter (principal); A41.01 Sepsis due to Methicillin susceptible Staphylococcus aureus; Y83.2 Surgical operation with anastomosis, bypass or graft as the cause of abnormal reaction of the patient, or of later complication, without mention of misadventure at the time of the procedure; D61.818 Other pancytopenia; I13.2 Hypertensive heart and chronic kidney disease with heart failure and with stage 5 chronic kidney disease, or end stage renal disease; E11.22 Type 2 diabetes mellitus with diabetic chronic kidney disease; N18.6 End stage renal disease; I50.32 Chronic diastolic (congestive) heart failure; E11.40 Type 2 diabetes mellitus with diabetic neuropathy, unspecified; E11.65 Type 2 diabetes mellitus with hyperglycemia; J44.9 Chronic obstructive pulmonary disease, unspecified; K52.9 Noninfective gastroenteritis and colitis, unspecified; D53.9 Nutritional anemia, unspecified; D63.1 Anemia in chronic kidney disease; I89.0 Lymphedema, not elsewhere classified; I25.10 Atherosclerotic heart disease of native coronary artery without angina pectoris; E78.5 Hyperlipidemia, unspecified; R26.2 Difficulty in walking, not elsewhere classified; I25.2 Old myocardial infarction; F32.9 Major depressive disorder, single episode, unspecified; F17.200 Nicotine dependence, unspecified, uncomplicated; Z68.41 Body mass index [BMI] 40.0-44.9, adult; Z79.4 Long term (current) use of insulin; Z79.82 Long term (current) use of aspirin; Z79.84 Long term (current) use of oral hypoglycemic drugs; Z82.3 Family history of stroke; Z82.49 Family history of ischemic heart disease and other diseases of the circulatory system; Z86.73 Personal history of transient ischemic attack (TIA), and cerebral infarction without residual deficits; Z98.61 Coronary angioplasty status; Z99.2 Dependence on renal dialysis
CPT/HCPCS: 36600; 71010; 78315; 78582; 78999; 80048; 80053; 80069; 80170; 80202; 81003; 82803; 82948; 83605; 84484; 85025; 85027; 87040; 87077; 87086; 87186; 87641; 87801; 93312; 93931; 93971; 94640; 94640 76; 94760; 94799; 99281; 99285; A9503; A9540; A9567; J0456; J0690; J0881; J1270; J1580; J1644; J1815; J2250; J2543; J3370; J7050

== ENCOUNTER 2017-07-10 09:54 | Emergency (ER) | payer OTHER ==
[~2017-07-10] VITALS: Ht 167.6 cm; Wt 73.0 kg
[~2017-07-10 09:54] MED LIST changes: +ANCEF,KEFZ1 GM/50 ML IV; +DOCUSATE SODIU100 MG PO; +FERRIC CITRATE210 MG PO; +ONE-A-DAY ESSE1 EAC1 PO; +PROTONIX40 MG PO
[2017-07-10 13:12] VITALS: BP 141/96
== END 2017-07-10 13:14 | disposition home or self-care (01) ==
LOC: EME 09:54
DX: I89.0 Lymphedema, not elsewhere classified (principal); I13.0 Hypertensive heart and chronic kidney disease with heart failure and stage 1 through stage 4 chronic kidney disease, or unspecified chronic kidney disease; N18.9 Chronic kidney disease, unspecified; I50.9 Heart failure, unspecified; Z99.2 Dependence on renal dialysis; E78.5 Hyperlipidemia, unspecified; I25.2 Old myocardial infarction; Z79.2 Long term (current) use of antibiotics; Z86.73 Personal history of transient ischemic attack (TIA), and cerebral infarction without residual deficits; Z85.51 Personal history of malignant neoplasm of bladder; F17.200 Nicotine dependence, unspecified, uncomplicated; Z87.442 Personal history of urinary calculi
CPT/HCPCS: 93970; 99281; 99283

== ENCOUNTER 2017-10-05 23:23 | Emergency (ER) | payer OTHER ==
[~2017-10-05] VITALS: Ht 167.6 cm; Wt 113.0 kg
[2017-10-06 01:47] VITALS: BP 114/47
== END 2017-10-06 01:47 | disposition home or self-care (01) ==
LOC: EME 23:23
DX: M79.89 Other specified soft tissue disorders (principal); I13.0 Hypertensive heart and chronic kidney disease with heart failure and stage 1 through stage 4 chronic kidney disease, or unspecified chronic kidney disease; N18.9 Chronic kidney disease, unspecified; I50.9 Heart failure, unspecified; Z99.2 Dependence on renal dialysis; F17.200 Nicotine dependence, unspecified, uncomplicated; E78.5 Hyperlipidemia, unspecified; G62.9 Polyneuropathy, unspecified; J44.9 Chronic obstructive pulmonary disease, unspecified; I25.2 Old myocardial infarction; F32.9 Major depressive disorder, single episode, unspecified; Z86.73 Personal history of transient ischemic attack (TIA), and cerebral infarction without residual deficits; Z87.442 Personal history of urinary calculi; Z95.5 Presence of coronary angioplasty implant and graft
CPT/HCPCS: 99281; 99284

== ENCOUNTER 2017-10-07 19:04 | Emergency (ER) | payer OTHER ==
[~2017-10-07] VITALS: Ht 167.6 cm; Wt 119.1 kg
[2017-10-07 20:08] LABS: CHLORIDE 89 mEq/L (99-109); POTASSIUM 3.4 mEq/L (3.7-5.4); SODIUM 134 mEq/L (136-147)
[2017-10-07 20:09] LABS: GLUCOSE 220 mg/dL (70-99)
[2017-10-07 20:13] LABS: CREATININE 2.8 mg/dL (0.6-1.3); GFR ESTIMATE (CALCULATED) 19 mL/min/
[2017-10-07 20:14] LABS: UREA NITROGEN (BUN) 16 mg/dL (9-23)
[2017-10-08 01:35] VITALS: BP 132/64
== END 2017-10-08 02:01 | disposition home or self-care (01) ==
LOC: EME 19:04
PROVIDERS: Emergency Medicine Emergency Medical Services
DX: J06.9 Acute upper respiratory infection, unspecified (principal); R53.1 Weakness; J44.9 Chronic obstructive pulmonary disease, unspecified; I25.2 Old myocardial infarction; I11.0 Hypertensive heart disease with heart failure; I50.9 Heart failure, unspecified; E78.5 Hyperlipidemia, unspecified; F32.9 Major depressive disorder, single episode, unspecified; F17.200 Nicotine dependence, unspecified, uncomplicated; Z86.73 Personal history of transient ischemic attack (TIA), and cerebral infarction without residual deficits; Z87.442 Personal history of urinary calculi
CPT/HCPCS: 71010; 80048; 82948; 85025; 93005; 94640; 99281; 99284

== ENCOUNTER 2017-10-10 22:01 | Inpatient (IN) | payer OTHER ==
[~2017-10-10] VITALS: Ht 167.6 cm; Wt 113.5 kg
[2017-10-10 23:29] LABS: EOSINOPHIL (%) 0.3 % (0-5); HEMATOCRIT 30.5 % (36.0-46.0); IMMATURE GRANULOCYTE (%) 0.5 % (0.0-0.7); INSTRUMENT ABS NEUTROPHIL CT 5.2 K/uL; LYMPHOCYTE COUNT 0.4 K/uL (1.0-2.8); MCH 31.7 PG (29.0-34.0); MCHC 32.1 G/DL (30.0-36.0); MCV 98.7 FL (83-99); MONOCYTE (%) 4.7 % (3-12); MONOCYTE COUNT 0.3 K/uL (0-0.8); NEUTROPHIL (%) 87.1 % (45-76); NEUTROPHIL COUNT 5.2 K/uL (1.8-6.4); PLATELET COUNT 124 K/uL (156-360); RBC DIS.WIDTH-CV 17.1 % (11.8-14.6); RBC DIS.WIDTH-SD 62.4 % (39-53); RED BLOOD COUNT 3.09 M/uL (3.80-5.20)
[2017-10-10 23:40] LABS: CHLORIDE 88 mEq/L (99-109); SODIUM 134 mEq/L (136-147)
[2017-10-10 23:43] LABS: ANION GAP 15 MEQ/L (2-14); GLUCOSE 218 mg/dL (70-99)
[2017-10-10 23:46] LABS: ALKALINE PHOSPHATASE 80 IU/L (3-129); GFR ESTIMATE (CALCULATED) 10 mL/min/
[2017-10-10 23:49] LABS: UREA NITROGEN (BUN) 34 mg/dL (9-23)
[2017-10-10 23:53] LABS: TROP-I INTERPRETATION NEGATIVE; TROPONIN-I 0.06 ng/mL (0.0-0.30)
[2017-10-11 00:20] LABS: ADD MIUA? YES; BILIRUBIN NEGATIVE; BLOOD MODERATE; COLOR AMBER ((YELLOW)); GLUCOSE (STRIP) >=500; KETONES 5; LEUKOCYTES LARGE; NITRITE NEGATIVE; PROTEIN (STRIP) >=500; SPECIFIC GRAVITY 1.013 (1.000-1.030); UROBILINOGEN 0.2 MG/DL (0.2-1.0)
[2017-10-11 00:49] LABS: UCUL ADDED? YES; WHITE BLOOD CELLS TNTC /HPF (0-5)
[2017-10-11 05:54] VITALS: BP 122/58
[2017-10-11 07:54] VITALS: BP 142/69
[2017-10-11 09:25] LABS: HEMATOCRIT 25.4 % (36.0-46.0); MCH 31.3 PG (29.0-34.0); MCHC 31.9 G/DL (30.0-36.0); MCV 98.1 FL (83-99); MEAN PLAT.VOLUME 10.7 uM^3 (9.5-12.4); PLATELET COUNT 98 K/uL (156-360); RBC DIS.WIDTH-CV 17.1 % (11.8-14.6); RBC DIS.WIDTH-SD 60.8 % (39-53); RED BLOOD COUNT 2.59 M/uL (3.80-5.20); WHITE BLOOD COUNT 5.8 K/uL (4.1-10.2)
[2017-10-11 09:54] LABS: ANION GAP 19 MEQ/L (2-14); CHLORIDE 89 MEQ/L (99-109); GFR ESTIMATE (CALCULATED) 10 mL/min/; GLUCOSE 247 mg/dL (70-99); POTASSIUM 3.4 MEQ/L (3.7-5.4); SAMPLE HEMOLYSIS CHECK 0; SAMPLE ICTERIC CHECK 0; SAMPLE LIPEMIA CHECK 0; SODIUM 135 MEQ/L (136-147); UREA NITROGEN (BUN) 38 mg/dL (9-23)
[2017-10-11 12:00] VITALS: BP 156/78
[2017-10-11 14:39] LABS: POINT-OF-CARE METER ID UU13113717
[2017-10-11 16:00] VITALS: BP 137/69
[2017-10-11] MEDS ORDERED: LEVEMIR FL100 UNIT/1 SC (16:05)
[2017-10-11] MEDS ORDERED: NOVOLOG PE100 UNITS/ SC (16:06)
[2017-10-11] MEDS ORDERED: DOXYCYCLINE MO100 MG PO (16:07)
[2017-10-11] MEDS ORDERED: FERROUS SULFAT325 MG PO (16:08)
[2017-10-11] MEDS ORDERED: FUROSEMIDE40 MG PO (16:10)
[2017-10-11 17:44] LABS: POINT-OF-CARE METER ID UU13113717
[2017-10-11 19:34] VITALS: BP 132/69
[2017-10-11 22:16] LABS: POINT-OF-CARE METER ID UU14174225
[2017-10-11 23:54] VITALS: BP 127/69
[2017-10-12] VITALS (7 sets, daily range): BP systolic 11–138; BP diastolic 55–64
[2017-10-12 07:53] LABS: ANION GAP 13 MEQ/L (2-14); CHLORIDE 93 MEQ/L (99-109); GFR ESTIMATE (CALCULATED) 9 mL/min/; GLUCOSE 167 mg/dL (70-99); MAGNESIUM 1.9 mg/dl (1.3-2.7); POTASSIUM 3.7 MEQ/L (3.7-5.4); SAMPLE HEMOLYSIS CHECK 0; SAMPLE ICTERIC CHECK 0; SAMPLE LIPEMIA CHECK 0; SODIUM 136 MEQ/L (136-147); UREA NITROGEN (BUN) 50 mg/dL (9-23)
[2017-10-12 08:51] LABS: HEMATOCRIT 22.6 % (36.0-46.0); MCH 31.2 PG (29.0-34.0); MCHC 31.9 G/DL (30.0-36.0); MCV 97.8 FL (83-99); MEAN PLAT.VOLUME 11.1 uM^3 (9.5-12.4); PLATELET COUNT 97 K/uL (156-360); RBC DIS.WIDTH-SD 60.4 % (39-53); RED BLOOD COUNT 2.31 M/uL (3.80-5.20); WHITE BLOOD COUNT 4.2 K/uL (4.1-10.2)
[2017-10-12 09:27] LABS: HEMATOCRIT 23.6 % (36.0-46.0); MCV 97.1 FL (83-99)
[2017-10-12 10:27] LABS: POINT-OF-CARE METER ID UU13113717
[2017-10-12 12:19] LABS: HBSG INDEX 0.17
[2017-10-12 12:20] LABS: AHBS INDEX 0.28; HEPATITIS B SURFACE ANTIBODY Nonreactive
[2017-10-12 13:59] LABS: POINT-OF-CARE METER ID UU14174225
[2017-10-12 17:09] LABS: POINT-OF-CARE METER ID UU14174225
[2017-10-12 17:46] LABS: Estimated Average Glucose 174 mg/dL (70-123); HEMOGLOBIN A1c (GLYCOHEMOGLOB) 7.7 % HGB (Below 5.7)
[2017-10-12 17:52] LABS: HDL CHOLESTEROL 14 MG/DL (Desirable>=50); LDL CHOLESTEROL 107 mg/dL (Desirable<100); NON-HDL CHOLESTEROL 163 mg/dL (Desirable<160); TOTAL CHOLESTEROL 177 mg/dL (Desirable<200); TRIGLYCERIDES 280 MG/DL (Normal: <150)
[2017-10-12 20:54] LABS: POINT-OF-CARE METER ID UU13113717
[2017-10-13 03:41] VITALS: BP 144/66
[2017-10-13 06:51] LABS: EOSINOPHIL (%) 4.7 % (0-5); EOSINOPHIL COUNT 0.2 K/uL (0-0.3); HEMATOCRIT 25.7 % (36.0-46.0); IMMATURE GRANULOCYTE (%) 1.4 % (0.0-0.7); IMMATURE GRANULOCYTE COUNT 0.1 K/uL; INSTRUMENT ABS NEUTROPHIL CT 2.4 K/uL; LYMPHOCYTE COUNT 0.6 K/uL (1.0-2.8); MCH 30.9 PG (29.0-34.0); MCHC 32.3 G/DL (30.0-36.0); MCV 95.5 FL (83-99); MEAN PLAT.VOLUME 10.9 uM^3 (9.5-12.4); MONOCYTE (%) 8.8 % (3-12); MONOCYTE COUNT 0.3 K/uL (0-0.8); NEUTROPHIL (%) 66.8 % (45-76); NEUTROPHIL COUNT 2.4 K/uL (1.8-6.4); PLATELET COUNT 115 K/uL (156-360); RBC DIS.WIDTH-CV 18.7 % (11.8-14.6); RBC DIS.WIDTH-SD 65.4 % (39-53); RED BLOOD COUNT 2.69 M/uL (3.80-5.20); WHITE BLOOD COUNT 3.6 K/uL (4.1-10.2)
[2017-10-13 07:15] LABS: ANION GAP 11 MEQ/L (2-14); CHLORIDE 95 MEQ/L (99-109); GFR ESTIMATE (CALCULATED) 13 mL/min/; GLUCOSE 232 mg/dL (70-99); POTASSIUM 3.4 MEQ/L (3.7-5.4); SAMPLE HEMOLYSIS CHECK 0; SAMPLE ICTERIC CHECK 0; SAMPLE LIPEMIA CHECK 0; SODIUM 132 MEQ/L (136-147); UREA NITROGEN (BUN) 25 mg/dL (9-23)
[2017-10-13 07:54] VITALS: BP 129/68
[2017-10-13 11:11] LABS: POINT-OF-CARE METER ID UU14174225
[2017-10-13 12:04] VITALS: BP 109/53
[2017-10-13 12:31] LABS: POINT-OF-CARE METER ID UU14174225
[2017-10-13 16:16] VITALS: BP 118/58
[2017-10-13 17:28] LABS: POINT-OF-CARE METER ID UU14174225
[2017-10-13 20:00] VITALS: BP 125/65
[2017-10-13 23:54] VITALS: BP 150/69
[2017-10-14 04:04] VITALS: BP 128/65
[2017-10-14 06:38] LABS: POINT-OF-CARE METER ID UU13113717
[2017-10-14 06:43] LABS: EOSINOPHIL (%) 6.2 % (0-5); EOSINOPHIL COUNT 0.3 K/uL (0-0.3); HEMATOCRIT 27.6 % (36.0-46.0); IMMATURE GRANULOCYTE (%) 1.7 % (0.0-0.7); IMMATURE GRANULOCYTE COUNT 0.1 K/uL; INSTRUMENT ABS NEUTROPHIL CT 2.7 K/uL; LYMPHOCYTE COUNT 0.8 K/uL (1.0-2.8); MCH 30.2 PG (29.0-34.0); MCHC 31.5 G/DL (30.0-36.0); MCV 95.8 FL (83-99); MEAN PLAT.VOLUME 10.7 uM^3 (9.5-12.4); MONOCYTE (%) 8.6 % (3-12); MONOCYTE COUNT 0.4 K/uL (0-0.8); NEUTROPHIL (%) 63.6 % (45-76); NEUTROPHIL COUNT 2.7 K/uL (1.8-6.4); NRBC (%) 0.5 /100 WBC (0-0); PLATELET COUNT 132 K/uL (156-360); RBC DIS.WIDTH-CV 17.7 % (11.8-14.6); RBC DIS.WIDTH-SD 61.6 % (39-53); RED BLOOD COUNT 2.88 M/uL (3.80-5.20); WHITE BLOOD COUNT 4.2 K/uL (4.1-10.2)
[2017-10-14 07:12] LABS: ANION GAP 11 MEQ/L (2-14); CHLORIDE 93 MEQ/L (99-109); GLUCOSE 213 mg/dL (70-99); SAMPLE HEMOLYSIS CHECK 0; SAMPLE ICTERIC CHECK 0; SAMPLE LIPEMIA CHECK 0; SODIUM 130 MEQ/L (136-147)
[2017-10-14 07:14] LABS: GFR ESTIMATE (CALCULATED) 10 mL/min/; POTASSIUM 4.1 MEQ/L (3.7-5.4); UREA NITROGEN (BUN) 38 mg/dL (9-23)
[2017-10-14 07:37] VITALS: BP 144/68
[2017-10-14] MEDS ORDERED: CARVEDILOL12.5 MG PO (13:03)
[2017-10-14] MEDS ORDERED: LEVEMIR FL100 UNIT/1 SC (13:03)
[2017-10-14] MEDS ORDERED: GABAPENTIN300 MG PO (13:03)
[2017-10-14] MEDS ORDERED: ANCEF,KEFZ1 GM/50 ML IV ×2 (13:13→13:19)
[2017-10-15 09:28] LABS: POINT-OF-CARE METER ID UU14174225
== END 2017-10-14 16:08 | disposition home or self-care (01) | DRG 314 ==
LOC: EME → EDBD 22:01 → EME 22:01 → EDOF 10-11 04:03 → 5SOUTH 10-11 04:03 → ENRESERV 10-11 04:05 → 5SOUTH 10-11 05:41
PROVIDERS: Emergency Medicine; Hospitalist; Internal Medicine; Internal Medicine Nephrology; Physician Assistant
PROC: 5A1D70Z Performance of Urinary Filtration, Intermittent, Less than 6 Hours Per Day (ICD-10-PCS; principal; 2017-10-12)
DX: T82.7XXA Infection and inflammatory reaction due to other cardiac and vascular devices, implants and grafts, initial encounter (principal); A41.2 Sepsis due to unspecified staphylococcus; N39.0 Urinary tract infection, site not specified; Z99.2 Dependence on renal dialysis; G93.41 Metabolic encephalopathy; N18.6 End stage renal disease; E11.22 Type 2 diabetes mellitus with diabetic chronic kidney disease; I50.9 Heart failure, unspecified; I13.2 Hypertensive heart and chronic kidney disease with heart failure and with stage 5 chronic kidney disease, or end stage renal disease; I25.10 Atherosclerotic heart disease of native coronary artery without angina pectoris; E11.51 Type 2 diabetes mellitus with diabetic peripheral angiopathy without gangrene; E11.42 Type 2 diabetes mellitus with diabetic polyneuropathy; E11.65 Type 2 diabetes mellitus with hyperglycemia; I65.22 Occlusion and stenosis of left carotid artery; J44.9 Chronic obstructive pulmonary disease, unspecified; E87.6 Hypokalemia; B95.2 Enterococcus as the cause of diseases classified elsewhere; B96.89 Other specified bacterial agents as the cause of diseases classified elsewhere; Z16.21 Resistance to vancomycin; L03.116 Cellulitis of left lower limb; D63.1 Anemia in chronic kidney disease; I89.0 Lymphedema, not elsewhere classified; E78.5 Hyperlipidemia, unspecified; F32.9 Major depressive disorder, single episode, unspecified; F17.210 Nicotine dependence, cigarettes, uncomplicated; B95.61 Methicillin susceptible Staphylococcus aureus infection as the cause of diseases classified elsewhere; Y83.2 Surgical operation with anastomosis, bypass or graft as the cause of abnormal reaction of the patient, or of later complication, without mention of misadventure at the time of the procedure; G89.4 Chronic pain syndrome; E87.1 Hypo-osmolality and hyponatremia; E66.9 Obesity, unspecified; D69.6 Thrombocytopenia, unspecified; Z79.82 Long term (current) use of aspirin; Z86.73 Personal history of transient ischemic attack (TIA), and cerebral infarction without residual deficits; I25.2 Old myocardial infarction; Z83.3 Family history of diabetes mellitus; Z82.49 Family history of ischemic heart disease and other diseases of the circulatory system; Z87.442 Personal history of urinary calculi; Z90.710 Acquired absence of both cervix and uterus; Z95.5 Presence of coronary angioplasty implant and graft; Z79.4 Long term (current) use of insulin; Z79.02 Long term (current) use of antithrombotics/antiplatelets; Z86.14 Personal history of Methicillin resistant Staphylococcus aureus infection
CPT/HCPCS: 70450; 70551; 71020; 73590; 74176; 76856; 80048; 80053; 80061; 81003; 82140; 82948; 83036; 83605; 83735; 83880; 84484; 85014; 85018; 85025; 85027; 86706; 86850; 86900; 86901; 86920; 87040; 87077; 87086; 87186; 87340; 87502; 87801; 92523 GN; 92610 GN; 93005; 93880; 93971; 94010; 94640; 94640 76; 94799; 99202; 99281; 99285; J0690; J0696; J0881; J1270; J1644; J1756; J1815; J3370; J7030; J7040; P9016

== ENCOUNTER 2017-10-26 12:50 | Emergency (ER) | payer OTHER ==
[~2017-10-26] VITALS: Ht 167.6 cm; Wt 60.7 kg
[~2017-10-26 12:50] MED LIST changes: +DOXYCYCLINE MO100 MG PO
[2017-10-26 17:28] LABS: HEMOGLOBIN 9.4 G/DL (11.9-15.5); MCH 31.3 PG (29.0-34.0); MCHC 32.4 G/DL (30.0-36.0); MCV 96.7 FL (83-99); RBC DIS.WIDTH-CV 19.1 % (11.8-14.6); RBC DIS.WIDTH-SD 65.4 % (39-53); WHITE BLOOD COUNT 3.6 K/uL (4.1-10.2)
[2017-10-26 17:30] LABS: PLATELET COUNT 88 K/uL (156-360)
[2017-10-26 17:42] LABS: CHLORIDE 92 mEq/L (99-109); SODIUM 134 mEq/L (136-147)
[2017-10-26 17:44] LABS: GLUCOSE 257 mg/dL (70-99)
[2017-10-26 17:47] LABS: CREATININE 4.9 mg/dL (0.6-1.3); GFR ESTIMATE (CALCULATED) 10 mL/min/
[2017-10-26 17:48] LABS: UREA NITROGEN (BUN) 43 mg/dL (9-23)
[2017-10-26 18:48] VITALS: BP 167/100
== END 2017-10-26 19:00 | disposition home or self-care (01) ==
LOC: EME 12:50
PROVIDERS: Emergency Medicine
DX: R53.1 Weakness (principal); E11.65 Type 2 diabetes mellitus with hyperglycemia; Z91.19 Patient's noncompliance with other medical treatment and regimen; E11.22 Type 2 diabetes mellitus with diabetic chronic kidney disease; I12.0 Hypertensive chronic kidney disease with stage 5 chronic kidney disease or end stage renal disease; N18.6 End stage renal disease; Z99.2 Dependence on renal dialysis; F17.200 Nicotine dependence, unspecified, uncomplicated; Z86.73 Personal history of transient ischemic attack (TIA), and cerebral infarction without residual deficits; I25.2 Old myocardial infarction; J44.9 Chronic obstructive pulmonary disease, unspecified; E78.5 Hyperlipidemia, unspecified; Z87.442 Personal history of urinary calculi; Z79.02 Long term (current) use of antithrombotics/antiplatelets; Z79.1 Long term (current) use of non-steroidal anti-inflammatories (NSAID); Z79.4 Long term (current) use of insulin
CPT/HCPCS: 80048; 85027; 99281; 99285

== ENCOUNTER 2017-10-28 11:18 | Inpatient (IN) | payer OTHER ==
[~2017-10-28] VITALS: Ht 167.6 cm; Wt 117.9 kg
[2017-10-28 13:49] LABS: APPEARANCE SL.HAZY ((CLEAR)); BILIRUBIN NEGATIVE; BLOOD SMALL; COLOR YELLOW ((YELLOW)); GLUCOSE (STRIP) >=500; KETONES NEGATIVE; LEUKOCYTES MODERATE; NITRITE NEGATIVE; PROTEIN (STRIP) >=500; SPECIFIC GRAVITY 1.016 (1.000-1.030); UROBILINOGEN 0.2 MG/DL (0.2-1.0)
[2017-10-28 13:58] LABS: BACTERIA 2+ /HPF; EPITHELIAL CELLS RARE /HPF; HYALINE CASTS 0-5 /LPF; MUCUS TRACE /LPF; WHITE BLOOD CELLS TNTC /HPF (0-5)
[2017-10-28 14:12] LABS: HEMATOCRIT 23.8 % (36.0-46.0); HEMOGLOBIN 7.6 G/DL (11.9-15.5); MCH 31.7 PG (29.0-34.0); MCHC 31.9 G/DL (30.0-36.0); MCV 99.2 FL (83-99); PLATELET COUNT 69 K/uL (156-360); RBC DIS.WIDTH-CV 19.1 % (11.8-14.6); WHITE BLOOD COUNT 4.2 K/uL (4.1-10.2)
[2017-10-28 14:14] LABS: ALBUMIN 3.1 g/dL (3.2-4.8); CHLORIDE 94 mEq/L (99-109); POTASSIUM 4.8 mEq/L (3.7-5.4); SODIUM 133 mEq/L (136-147)
[2017-10-28 14:15] LABS: MAGNESIUM 1.9 mg/dL (1.3-2.7)
[2017-10-28 14:16] LABS: GLUCOSE 299 mg/dL (70-99); TOTAL PROTEIN 7.6 g/dL (6.4-8.3)
[2017-10-28 14:18] LABS: TOTAL BILIRUBIN 0.9 mg/dL (0.0-1.0)
[2017-10-28 14:20] LABS: ALKALINE PHOSPHATASE 113 IU/L (3-129); GFR ESTIMATE (CALCULATED) 8 mL/min/
[2017-10-28 14:21] LABS: UREA NITROGEN (BUN) 58 mg/dL (9-23)
[2017-10-28 14:22] LABS: AST (GOT) 13 IU/L (2-34); CREATININE 5.8 mg/dL (0.6-1.3)
[2017-10-28 14:23] LABS: ALT (GPT) 4 IU/L (3-49)
[2017-10-28] MEDS ORDERED: GABAPENTIN300 MG PO (17:41)
[2017-10-28] MEDS ORDERED: COREG12.5 M1 PO (17:41)
[2017-10-28] MEDS ORDERED: NOVOLOG PE100 UNITS/ SC (17:43)
[2017-10-28] MEDS ORDERED: FUROSEMIDE40 MG PO (17:44)
[2017-10-28 23:00] VITALS: BP 168/68
[2017-10-28 23:21] VITALS: BP 168/68
[2017-10-29 07:18] LABS: HEMATOCRIT 24.8 % (36.0-46.0); HEMOGLOBIN 7.8 G/DL (11.9-15.5); MCH 30.8 PG (29.0-34.0); MCHC 31.5 G/DL (30.0-36.0); PLATELET COUNT 81 K/uL (156-360); RBC DIS.WIDTH-CV 19.1 % (11.8-14.6); RED BLOOD COUNT 2.53 M/uL (3.80-5.20)
[2017-10-29 07:24] LABS: CHLORIDE 90 MEQ/L (99-109); GFR ESTIMATE (CALCULATED) 14 mL/min/; GLUCOSE 261 mg/dL (70-99); POTASSIUM 4.1 MEQ/L (3.7-5.4); SODIUM 131 MEQ/L (136-147); UREA NITROGEN (BUN) 30 mg/dL (9-23)
[2017-10-29 07:28] LABS: CREATININE 3.5 MG/DL (0.6-1.3)
[2017-10-29 08:31] VITALS: BP 133/61
[2017-10-29 16:34] VITALS: BP 130/61
[2017-10-29 23:41] VITALS: BP 122/59
[2017-10-30 07:35] VITALS: BP 123/55
[2017-10-30 08:20] LABS: BASOPHIL (%) 0.5 % (0-1); EOSINOPHIL (%) 3.5 % (0-5); EOSINOPHIL COUNT 0.1 K/uL (0-0.3); HEMATOCRIT 23.5 % (36.0-46.0); HEMOGLOBIN 7.3 G/DL (11.9-15.5); IMMATURE GRANULOCYTE (%) 0.5 % (0.0-0.7); LYMPHOCYTE (%) 13.4 % (15-42); LYMPHOCYTE COUNT 0.5 K/uL (1.0-2.8); MCH 30.5 PG (29.0-34.0); MCHC 31.1 G/DL (30.0-36.0); MCV 98.3 FL (83-99); MONOCYTE (%) 7.8 % (3-12); MONOCYTE COUNT 0.3 K/uL (0-0.8); NEUTROPHIL (%) 74.3 % (45-76); NEUTROPHIL COUNT 2.8 K/uL (1.8-6.4); PLATELET COUNT 82 K/uL (156-360); RBC DIS.WIDTH-CV 18.7 % (11.8-14.6); RBC DIS.WIDTH-SD 67.5 % (39-53); RED BLOOD COUNT 2.39 M/uL (3.80-5.20); WHITE BLOOD COUNT 3.7 K/uL (4.1-10.2)
[2017-10-30 08:29] LABS: CHLORIDE 90 MEQ/L (99-109); POTASSIUM 4.2 MEQ/L (3.7-5.4); SODIUM 130 MEQ/L (136-147)
[2017-10-30 08:40] LABS: GFR ESTIMATE (CALCULATED) 10 mL/min/; GLUCOSE 235 mg/dL (70-99)
[2017-10-30 08:49] LABS: CREATININE 4.8 MG/DL (0.6-1.3); UREA NITROGEN (BUN) 46 mg/dL (9-23)
[2017-10-30 13:03] LABS: HEMATOCRIT 24.4 % (36.0-46.0); HEMOGLOBIN 7.9 G/DL (11.9-15.5); MCV 97.6 FL (83-99)
[2017-10-30 16:40] VITALS: BP 115/55
[2017-10-30 20:49] VITALS: BP 123/60
[2017-10-31] VITALS: BP 112/83
[2017-10-31 06:41] LABS: BASOPHIL (%) 0.6 % (0-1); EOSINOPHIL (%) 5.6 % (0-5); EOSINOPHIL COUNT 0.2 K/uL (0-0.3); HEMATOCRIT 30.4 % (36.0-46.0); HEMOGLOBIN 9.8 G/DL (11.9-15.5); IMMATURE GRANULOCYTE (%) 1.7 % (0.0-0.7); LYMPHOCYTE (%) 26.9 % (15-42); MCH 31.9 PG (29.0-34.0); MCHC 32.2 G/DL (30.0-36.0); MONOCYTE (%) 9.8 % (3-12); MONOCYTE COUNT 0.4 K/uL (0-0.8); NEUTROPHIL (%) 55.4 % (45-76); PLATELET COUNT 61 K/uL (156-360); RBC DIS.WIDTH-SD 68.3 % (39-53); WHITE BLOOD COUNT 3.6 K/uL (4.1-10.2)
[2017-10-31 06:42] LABS: CHLORIDE 92 MEQ/L (99-109); GFR ESTIMATE (CALCULATED) 15 mL/min/; GLUCOSE 176 mg/dL (70-99); SODIUM 133 MEQ/L (136-147); UREA NITROGEN (BUN) 24 mg/dL (9-23)
[2017-10-31 06:47] LABS: CREATININE 3.4 MG/DL (0.6-1.3)
[2017-10-31 06:55] VITALS: BP 137/65
[2017-10-31 06:56] LABS: RED BLOOD COUNT 3.07 M/uL (3.80-5.20)
[2017-10-31 15:15] VITALS: BP 144/75
[2017-11-01 09:02] VITALS: BP 117/58
[2017-11-01 17:19] VITALS: BP 122/75; BP 133/65
[2017-11-01 21:25] VITALS: BP 124/80
[2017-11-01 23:52] VITALS: BP 126/60
[2017-11-02 09:12] LABS: ALBUMIN 3.3 G/DL (3.2-4.8); CHLORIDE 88 MEQ/L (99-109); GLUCOSE 144 mg/dL (70-99); MAGNESIUM 2.1 mg/dl (1.3-2.7); PHOSPHORUS 5.5 mg/dL (2.5-4.9); POTASSIUM 4.4 MEQ/L (3.7-5.4)
[2017-11-02 09:22] LABS: CREATININE 5.9 MG/DL (0.6-1.3); GFR ESTIMATE (CALCULATED) 8 mL/min/; SODIUM 125 MEQ/L (136-147); UREA NITROGEN (BUN) 46 mg/dL (9-23)
[2017-11-02 09:24] LABS: BASOPHIL (%) 0.5 % (0-1); EOSINOPHIL (%) 5.9 % (0-5); EOSINOPHIL COUNT 0.2 K/uL (0-0.3); HEMATOCRIT 23.1 % (36.0-46.0); IMMATURE GRANULOCYTE (%) 0.8 % (0.0-0.7); LYMPHOCYTE (%) 21.2 % (15-42); LYMPHOCYTE COUNT 0.8 K/uL (1.0-2.8); MCH 31.8 PG (29.0-34.0); MCV 99.1 FL (83-99); MONOCYTE (%) 6.7 % (3-12); MONOCYTE COUNT 0.3 K/uL (0-0.8); NEUTROPHIL (%) 64.9 % (45-76); NEUTROPHIL COUNT 2.4 K/uL (1.8-6.4); RBC DIS.WIDTH-CV 18.7 % (11.8-14.6); RBC DIS.WIDTH-SD 65.6 % (39-53); WHITE BLOOD COUNT 3.7 K/uL (4.1-10.2)
[2017-11-02 09:26] LABS: HEMOGLOBIN 7.4 G/DL (11.9-15.5); PLATELET COUNT 89 K/uL (156-360); RED BLOOD COUNT 2.33 M/uL (3.80-5.20)
[2017-11-02 16:10] VITALS: BP 111/56
[2017-11-02 23:15] VITALS: BP 129/61
[2017-11-03 07:06] LABS: BASOPHIL (%) 0.6 % (0-1); EOSINOPHIL (%) 5.7 % (0-5); EOSINOPHIL COUNT 0.2 K/uL (0-0.3); HEMATOCRIT 26.6 % (36.0-46.0); HEMOGLOBIN 8.5 G/DL (11.9-15.5); IMMATURE GRANULOCYTE (%) 1.4 % (0.0-0.7); LYMPHOCYTE (%) 23.4 % (15-42); LYMPHOCYTE COUNT 0.8 K/uL (1.0-2.8); MONOCYTE COUNT 0.3 K/uL (0-0.8); NEUTROPHIL (%) 60.9 % (45-76); NEUTROPHIL COUNT 2.1 K/uL (1.8-6.4); RBC DIS.WIDTH-CV 18.9 % (11.8-14.6); RBC DIS.WIDTH-SD 67.8 % (39-53); RED BLOOD COUNT 2.66 M/uL (3.80-5.20); WHITE BLOOD COUNT 3.5 K/uL (4.1-10.2)
[2017-11-03 07:11] LABS: PLATELET COUNT 101 K/uL (156-360)
[2017-11-03 07:26] LABS: CHLORIDE 94 MEQ/L (99-109); GLUCOSE 160 mg/dL (70-99); POTASSIUM 4.7 MEQ/L (3.7-5.4); UREA NITROGEN (BUN) 26 mg/dL (9-23)
[2017-11-03 07:27] LABS: CREATININE 4.2 MG/DL (0.6-1.3); GFR ESTIMATE (CALCULATED) 12 mL/min/; SODIUM 134 MEQ/L (136-147)
[2017-11-03 08:30] VITALS: BP 131/63
[2017-11-03 15:52] VITALS: BP 103/55
[2017-11-03 23:23] VITALS: BP 147/65
[2017-11-04 07:53] LABS: BASOPHIL (%) 0.6 % (0-1); EOSINOPHIL (%) 5.5 % (0-5); EOSINOPHIL COUNT 0.2 K/uL (0-0.3); HEMATOCRIT 24.9 % (36.0-46.0); HEMOGLOBIN 7.9 G/DL (11.9-15.5); IMMATURE GRANULOCYTE (%) 0.8 % (0.0-0.7); LYMPHOCYTE COUNT 0.8 K/uL (1.0-2.8); MCH 32.5 PG (29.0-34.0); MCHC 31.7 G/DL (30.0-36.0); MCV 102.5 FL (83-99); MONOCYTE (%) 6.1 % (3-12); MONOCYTE COUNT 0.2 K/uL (0-0.8); NEUTROPHIL COUNT 2.3 K/uL (1.8-6.4); PLATELET COUNT 103 K/uL (156-360); RBC DIS.WIDTH-CV 19.2 % (11.8-14.6); RBC DIS.WIDTH-SD 70.2 % (39-53); RED BLOOD COUNT 2.43 M/uL (3.80-5.20); WHITE BLOOD COUNT 3.6 K/uL (4.1-10.2)
[2017-11-04 08:02] LABS: ALBUMIN 3.5 G/DL (3.2-4.8); CHLORIDE 94 MEQ/L (99-109); POTASSIUM 4.6 MEQ/L (3.7-5.4); SODIUM 132 MEQ/L (136-147)
[2017-11-04 08:09] LABS: CREATININE 5.5 MG/DL (0.6-1.3); GFR ESTIMATE (CALCULATED) 9 mL/min/; GLUCOSE 174 mg/dL (70-99); PHOSPHORUS 5.6 mg/dL (2.5-4.9); UREA NITROGEN (BUN) 41 mg/dL (9-23)
[2017-11-04 12:46] VITALS: BP 138/63
[2017-11-04 16:43] VITALS: BP 115/56
[2017-11-04 23:25] VITALS: BP 119/58
[2017-11-05 07:10] VITALS: BP 141/63
[2017-11-05 15:05] VITALS: BP 116/56
[2017-11-05 23:13] VITALS: BP 144/76
[2017-11-06 08:13] LABS: BASOPHIL (%) 0.5 % (0-1); EOSINOPHIL COUNT 0.2 K/uL (0-0.3); HEMATOCRIT 26.4 % (36.0-46.0); HEMOGLOBIN 8.3 G/DL (11.9-15.5); IMMATURE GRANULOCYTE (%) 0.5 % (0.0-0.7); LYMPHOCYTE (%) 19.6 % (15-42); LYMPHOCYTE COUNT 0.7 K/uL (1.0-2.8); MCH 31.9 PG (29.0-34.0); MCHC 31.4 G/DL (30.0-36.0); MCV 101.5 FL (83-99); MONOCYTE (%) 7.4 % (3-12); MONOCYTE COUNT 0.3 K/uL (0-0.8); NEUTROPHIL COUNT 2.5 K/uL (1.8-6.4); PLATELET COUNT 102 K/uL (156-360); RBC DIS.WIDTH-CV 19.4 % (11.8-14.6); WHITE BLOOD COUNT 3.8 K/uL (4.1-10.2)
[2017-11-06 08:29] LABS: ALBUMIN 3.5 G/DL (3.2-4.8); CHLORIDE 92 MEQ/L (99-109); CREATININE 5.2 MG/DL (0.6-1.3); GFR ESTIMATE (CALCULATED) 9 mL/min/; GLUCOSE 252 mg/dL (70-99); PHOSPHORUS 5.1 mg/dL (2.5-4.9); SODIUM 130 MEQ/L (136-147); UREA NITROGEN (BUN) 44 mg/dL (9-23)
[2017-11-06 15:00] VITALS: BP 131/66
[2017-11-06 22:50] VITALS: BP 135/65
[2017-11-07 07:45] VITALS: BP 126/60
[2017-11-07 15:00] VITALS: BP 128/59
[2017-11-07 16:12] VITALS: BP 128/59
[2017-11-07 23:59] VITALS: BP 136/62
[2017-11-08 07:25] VITALS: BP 156/73
[2017-11-08 15:19] VITALS: BP 131/60
[2017-11-09 00:10] VITALS: BP 121/58
[2017-11-09 08:02] LABS: ALBUMIN 3.6 G/DL (3.2-4.8); CHLORIDE 87 MEQ/L (99-109); POTASSIUM 5.4 MEQ/L (3.7-5.4); SODIUM 125 MEQ/L (136-147)
[2017-11-09 08:13] LABS: CREATININE 5.7 MG/DL (0.6-1.3); GFR ESTIMATE (CALCULATED) 8 mL/min/; GLUCOSE 195 mg/dL (70-99)
[2017-11-09 08:14] LABS: UREA NITROGEN (BUN) 93 mg/dL (9-23)
[2017-11-09 08:24] LABS: BASOPHIL (%) 0.6 % (0-1); EOSINOPHIL (%) 3.1 % (0-5); EOSINOPHIL COUNT 0.2 K/uL (0-0.3); HEMATOCRIT 23.6 % (36.0-46.0); HEMOGLOBIN 7.5 G/DL (11.9-15.5); IMMATURE GRANULOCYTE (%) 0.4 % (0.0-0.7); LYMPHOCYTE (%) 18.3 % (15-42); LYMPHOCYTE COUNT 0.9 K/uL (1.0-2.8); MCH 31.9 PG (29.0-34.0); MCHC 31.8 G/DL (30.0-36.0); MCV 100.4 FL (83-99); MONOCYTE (%) 6.8 % (3-12); MONOCYTE COUNT 0.3 K/uL (0-0.8); NEUTROPHIL (%) 70.8 % (45-76); NEUTROPHIL COUNT 3.4 K/uL (1.8-6.4); RBC DIS.WIDTH-CV 19.7 % (11.8-14.6); RBC DIS.WIDTH-SD 70.6 % (39-53); RED BLOOD COUNT 2.35 M/uL (3.80-5.20); WHITE BLOOD COUNT 4.8 K/uL (4.1-10.2)
[2017-11-09 08:35] LABS: PLAT.SUFFICIENCY DECREASED
[2017-11-09 08:41] LABS: PLATELET COUNT 63 K/uL (156-360)
[2017-11-09 10:41] LABS: HEPATITIS B SURFACE ANTIGEN Nonreactive
[2017-11-09 12:36] VITALS: BP 115/56
[2017-11-09 16:13] VITALS: BP 110/56
[2017-11-10 00:07] VITALS: BP 101/53
[2017-11-10 06:50] VITALS: BP 121/57
[2017-11-10 08:02] LABS: BASOPHIL (%) 0.3 % (0-1); EOSINOPHIL (%) 3.6 % (0-5); EOSINOPHIL COUNT 0.1 K/uL (0-0.3); HEMATOCRIT 22.9 % (36.0-46.0); HEMOGLOBIN 7.3 G/DL (11.9-15.5); IMMATURE GRANULOCYTE (%) 0.6 % (0.0-0.7); LYMPHOCYTE (%) 17.7 % (15-42); LYMPHOCYTE COUNT 0.6 K/uL (1.0-2.8); MCH 32.6 PG (29.0-34.0); MCHC 31.9 G/DL (30.0-36.0); MCV 102.2 FL (83-99); MONOCYTE (%) 9.9 % (3-12); MONOCYTE COUNT 0.4 K/uL (0-0.8); NEUTROPHIL (%) 67.9 % (45-76); NEUTROPHIL COUNT 2.5 K/uL (1.8-6.4); PLATELET COUNT 61 K/uL (156-360); RBC DIS.WIDTH-SD 73.3 % (39-53); RED BLOOD COUNT 2.24 M/uL (3.80-5.20); WHITE BLOOD COUNT 3.6 K/uL (4.1-10.2)
[2017-11-10 08:56] LABS: ALBUMIN 3.4 G/DL (3.2-4.8); ALKALINE PHOSPHATASE 89 IU/L (3-129); ALT (GPT) < 3 IU/L (3-49); AST (GOT) 18 IU/L (2-34); CHLORIDE 89 MEQ/L (99-109); GFR ESTIMATE (CALCULATED) 12 mL/min/; GLUCOSE 241 mg/dL (70-99); POTASSIUM 4.7 MEQ/L (3.7-5.4); SODIUM 130 MEQ/L (136-147); TOTAL BILIRUBIN 0.4 MG/DL (0.0-1.0); TOTAL PROTEIN 7.1 G/DL (6.4-8.3); UREA NITROGEN (BUN) 52 mg/dL (9-23)
[2017-11-10] MEDS ORDERED: LEVEMIR100 UNIT/2 SC (14:49)
[2017-11-11 00:02] VITALS: BP 99/52
[2017-11-11 07:10] VITALS: BP 108/54
[2017-11-11 08:48] LABS: HEMATOCRIT 23.5 % (36.0-46.0); HEMOGLOBIN 7.4 G/DL (11.9-15.5); MCH 32.2 PG (29.0-34.0); MCHC 31.5 G/DL (30.0-36.0); MCV 102.2 FL (83-99); PLATELET COUNT 63 K/uL (156-360); RBC DIS.WIDTH-CV 20.3 % (11.8-14.6); RBC DIS.WIDTH-SD 74.3 % (39-53); WHITE BLOOD COUNT 4.5 K/uL (4.1-10.2)
[2017-11-11 08:49] LABS: BASOPHIL (%) 0.4 % (0-1); EOSINOPHIL (%) 2.7 % (0-5); EOSINOPHIL COUNT 0.1 K/uL (0-0.3); IMMATURE GRANULOCYTE (%) 0.4 % (0.0-0.7); LYMPHOCYTE (%) 17.7 % (15-42); LYMPHOCYTE COUNT 0.8 K/uL (1.0-2.8); MONOCYTE (%) 7.6 % (3-12); MONOCYTE COUNT 0.3 K/uL (0-0.8); NEUTROPHIL (%) 71.2 % (45-76); NEUTROPHIL COUNT 3.2 K/uL (1.8-6.4)
[2017-11-11 09:16] LABS: CHLORIDE 88 MEQ/L (99-109); GFR ESTIMATE (CALCULATED) 9 mL/min/; GLUCOSE 193 mg/dL (70-99); POTASSIUM 5.6 MEQ/L (3.7-5.4); SODIUM 128 MEQ/L (136-147)
[2017-11-11 09:18] LABS: CREATININE 5.1 MG/DL (0.6-1.3); UREA NITROGEN (BUN) 86 mg/dL (9-23)
[2017-11-11] MEDS ORDERED: ANCEF,KEFZOL1 GM IV (15:43)
== END 2017-11-11 16:11 | DRG 314 ==
LOC: EME 11:18 → EDOF 15:01 → 5EAST 15:01 → ENRESERV 15:03 → 5EAST 22:41
PROVIDERS: Emergency Medicine; Internal Medicine; Internal Medicine Nephrology; Physician Assistant
PROC: 5A1D70Z Performance of Urinary Filtration, Intermittent, Less than 6 Hours Per Day (ICD-10-PCS; principal; 2017-10-28)
PROC: 5A1D70Z Performance of Urinary Filtration, Intermittent, Less than 6 Hours Per Day (ICD-10-PCS; 2017-10-30)
PROC: 5A1D70Z Performance of Urinary Filtration, Intermittent, Less than 6 Hours Per Day (ICD-10-PCS; 2017-11-02)
PROC: 5A1D70Z Performance of Urinary Filtration, Intermittent, Less than 6 Hours Per Day (ICD-10-PCS; 2017-11-04)
PROC: 5A1D70Z Performance of Urinary Filtration, Intermittent, Less than 6 Hours Per Day (ICD-10-PCS; 2017-11-06)
PROC: 5A1D70Z Performance of Urinary Filtration, Intermittent, Less than 6 Hours Per Day (ICD-10-PCS; 2017-11-09)
PROC: 5A1D70Z Performance of Urinary Filtration, Intermittent, Less than 6 Hours Per Day (ICD-10-PCS; 2017-11-10)
PROC: 5A1D70Z Performance of Urinary Filtration, Intermittent, Less than 6 Hours Per Day (ICD-10-PCS; 2017-11-11)
DX: T82.7XXA Infection and inflammatory reaction due to other cardiac and vascular devices, implants and grafts, initial encounter (principal); N18.6 End stage renal disease; G93.40 Encephalopathy, unspecified; E87.70 Fluid overload, unspecified; E11.22 Type 2 diabetes mellitus with diabetic chronic kidney disease; L03.116 Cellulitis of left lower limb; I13.2 Hypertensive heart and chronic kidney disease with heart failure and with stage 5 chronic kidney disease, or end stage renal disease; E78.5 Hyperlipidemia, unspecified; E11.65 Type 2 diabetes mellitus with hyperglycemia; E66.01 Morbid (severe) obesity due to excess calories; M79.89 Other specified soft tissue disorders; E87.1 Hypo-osmolality and hyponatremia; I25.10 Atherosclerotic heart disease of native coronary artery without angina pectoris; J44.9 Chronic obstructive pulmonary disease, unspecified; Z82.49 Family history of ischemic heart disease and other diseases of the circulatory system; B95.61 Methicillin susceptible Staphylococcus aureus infection as the cause of diseases classified elsewhere; B95.2 Enterococcus as the cause of diseases classified elsewhere; N39.0 Urinary tract infection, site not specified; D63.1 Anemia in chronic kidney disease; F17.210 Nicotine dependence, cigarettes, uncomplicated; T50.1X6A Underdosing of loop [high-ceiling] diuretics, initial encounter; I87.8 Other specified disorders of veins; Z86.718 Personal history of other venous thrombosis and embolism; Z95.5 Presence of coronary angioplasty implant and graft; R12 Heartburn; I25.2 Old myocardial infarction; Z99.2 Dependence on renal dialysis; Z68.41 Body mass index [BMI] 40.0-44.9, adult; Z79.4 Long term (current) use of insulin; Z79.82 Long term (current) use of aspirin; Z86.19 Personal history of other infectious and parasitic diseases; Z87.442 Personal history of urinary calculi; Z91.15 Patient's noncompliance with renal dialysis; Y83.2 Surgical operation with anastomosis, bypass or graft as the cause of abnormal reaction of the patient, or of later complication, without mention of misadventure at the time of the procedure; Z86.73 Personal history of transient ischemic attack (TIA), and cerebral infarction without residual deficits; Z79.899 Other long term (current) drug therapy; Z16.21 Resistance to vancomycin
CPT/HCPCS: 71045; 80048; 80053; 80069; 80170; 81003; 82948; 83735; 85014; 85018; 85025; 85025 91; 85027; 86850; 86900; 86901; 86920; 87040; 87077; 87086; 87186; 87340; 87801; 93005; 93971; 94640 76; 94799; 99281; 99285; J0360; J0690; J0696; J0881; J1580; J1644; J1815; J2405; J7050; P9016